=== PATIENT | female | born 1985 ===

== ENCOUNTER 2021-04-06 15:33 | Outpatient (REF) | payer OTHER, SELFPAY ==
[2021-04-06 16:13] LABS: Hematocrit 37.1 % (37.0-47.0); Hemoglobin 12.4 g/dl (12.0-16.0); Mean Corpuscular HGB Conc 33.4 g/dl (31.0-35.0); Mean Corpuscular Hemoglobin 30.1 pg (27.0-33.0); Mean Platelet Volume 10.3 fL (9.4-12.3); Platelet Count 278 X10*3/uL (160-400); Red Blood Count 4.12 X10*6/uL (4.20-5.50); Red Cell Distribution Width 13.8 % (11.0-16.0); White Blood Count 8.2 X10*3/uL (4.8-10.8)
[2021-04-06 16:36] LABS: Alanine Aminotransferase 11 U/L (0-31); Albumin Level 4.4 g/dL (3.5-5.0); Alkaline Phosphatase 57 U/L (39-117); Anion Gap 11 (12-20); Aspartate Amino Transferase 14 U/L (5-31); Bilirubin Direct 0.2 mg/dL (0.0-0.5); Bilirubin Total 0.4 mg/dL (0.0-1.0); Blood Urea Nitrogen 8 mg/dL (9-16); Calcium 9.9 mg/dL (8.4-10.2); Carbon Dioxide 27 mmol/L (22-29); Chloride 105 mmol/L (96-108); Estimated Glomerular Filt Rate > 60; Glucose Random 80 mg/dL (60-115); Potassium 4.2 mmol/L (3.3-5.1); Rheumatoid Factor < 15.0 IU/mL (<15.0); Sodium 139 mmol/L (135-145); Total Protein 7.4 g/dL (6.5-8.0)
[2021-04-06 16:51] LABS: Erythrocyte Sedimentation Rate 17 MM/HR (0-20)
[2021-04-07 05:02] LABS: Lyme Abs Screen <0.90 index
[2021-04-07 08:37] LABS: HIV AB/AG Nonreactive (Nonreactive); HIV Num 1 0.08 S/CO (0.00-0.99)
[2021-04-07 08:41] LABS: Syphilis Screen Nonreactive (Nonreactive)
[2021-04-09 13:05] LABS: Anti Nuclear Antibody Screen NEGATIVE (NEGATIVE)
[2021-04-11 10:06] LABS: HLA B27 Positive (Negative)
== END 2021-04-06 15:34 | disposition home or self-care (01) ==
LOC: HO.LAB 15:33
PROVIDERS: PCP Internal Medicine; Visit Provider Psychiatry & Neurology Neurology
DX: Z01.84 Encounter for antibody response examination (principal); Z11.4 Encounter for screening for human immunodeficiency virus [HIV]; M54.9 Dorsalgia, unspecified
CPT/HCPCS: 36415; 80048; 80076; 85027; 85652; 86038; 86039; 86431; 86617; 86618; 86780; 86812; 87389

== ENCOUNTER → 2021-05-19 08:01 | Outpatient (BNVA) | payer OTHER, SELFPAY | PROVIDERS: PCP Internal Medicine; Visit Provider Nurse Practitioner Family | DX: M53.3 Sacrococcygeal disorders, not elsewhere classified (principal); M51.34 Other intervertebral disc degeneration, thoracic region | CPT/HCPCS: 99202 ==

== ENCOUNTER → 2022-08-29 13:09 | Outpatient (BNVA) | payer OTHER, SELFPAY | PROVIDERS: PCP Internal Medicine; Visit Provider Neurological Surgery | DX: Z98.1 Arthrodesis status (principal) | CPT/HCPCS: 99212 ==

== ENCOUNTER 2022-12-03 09:10 | Outpatient (AMB) | payer OTHER, SELFPAY ==
--- NOTE | 2022-12-03 09:11 | MHC.OFFVIS ---
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 She was last seen by Tish OMER in May 2021 with recommendations to undergo SIJ injections. Patient reports she was under the care of Dr. Mckeon and underwent post minimally invasive lumbar fusion at L4-L5 last year and had follow up in on 08/29/22 with repeat of lumbar spine MRI for which she is scheduled to review with [facility] this upcoming Saturday. MRI findings are concerned for early discitis and osteomyelitis. Patient presents with localized midline spine tenderness in her lower back with back pain radiating into her left buttock and bilateral lower extremities. She is tearful, constantly changing positions from standing to sitting but fully cooperates with exam which elicits her left sided back with any movement. She has significant tenderness in the projection of bilateral sacroiliac joints with minimal provocative tests. Patient ambulates without assistive devices but with antalgic gait. Reports occasional episodes of bowel and urine incontinence with severe back pain but no saddle anesthesia. Reports chronic left lower weakness with walking. Denies any recent trauma, injury or falls. Denies any fever, weight loss, night sweats, shortness of breaths, chest pain, dizziness, abdominal or groin pain. PRIOR Tish OMER 05/19/21: Vero is a 36 year female who presents to the office with complaints of low back pain. She reports having this pain since 2019 and attributes it to a traumatic fall while incarcerated. She reports being hospitalized for three weeks requiring extensive physical therapy and VNA services. She is now ambulting unassisted but with antalgic gait to shift weight off of the left side. She also reports a shooting pain down the left leg posteriorly especially when left side laying. She reports cramping throughout upper gluteal muscles and numbness throughout her toes. She also describes a stabbing pain across the low back. She reports having an EMG which was normal but the results at not available. She has been under the care of the arthritis center where imaging was performed and has been uploaded in her chart. She has been given prednisone in the past and states her pain significantly worsened. She is using meloxicam and heat with minimal effect. She has tried diclofenac, lidocaine patches and gabapentin with no relief. Her pain is exacerbated with sitting and prolonged standing. She states the pain onset as sudden, constant and rates the pain as 10/10. She does have relief when she is in a flexed position over her couch with her legs suspended in the air. She denies any back injections since this incident and denies any back surgery. She has an upcoming appointment with Dr. Mckeon, neurosurgery, on 06/13/21 for an evaluation. [facility] with normal SIJ imaging as well as WNL inflammatory makers. Of note, she recently attempted suicide and is under the care of psychiatry. Review of Systems Const All systems reviewed & are unremarkable except as noted in HPI and below Physical Exam Vital Signs: Last Vital Signs Pulse 58 12/03/22 09:15 BP 158/85 H 12/03/22 09:15 Pulse Ox 97 12/03/22 09:15 Oxygen Delivery Method Room Air 12/03/22 09:15 BMI result Body Mass Index 26.7 General: Appears afebrile. Alert and oriented. Mood and affect appropriate. Tearful. Follows and participates in conversation appropriately. Respiratory effort is unlabored. No cough. Able to transition from sit to stand unassisted. Pacing, constantly changes positioning due to pain. Back/Spine/Pelvis Other: Antalgic gait with limping. Limited lumbar ROM with flexion reproducing worse pain than extension. Demonstrates 5/5 strength of quadriceps bilaterally as well as flexion/dorsiflexion of bilateral feet against resistance. 2+ pedal pulses bilaterally. Seated straight leg rise with dorsiflexion negative bilaterally. +2 patellar and achilles reflexes bilaterally. Facet loading test positive bilaterally. Marcel sign, Alexei?s, Gaenslen, Pelvic compression and Stinchfield tests are positive bilaterall, worse on the left. No groin pain with I/E hip rotations. Valsalva maneuver negative. Significant midline and paraspinal tenderness lower spine bilaterally. Results Reviewed Results Reviewed: Assessment & Plan Assessment & Plan (1) Discitis of lumbar region: Code(s): M46.46 - Discitis, unspecified, lumbar region (2) Osteomyelitis of lumbar spine: Code(s): M46.26 - Osteomyelitis of vertebra, lumbar region (3) DDD (degenerative disc disease), thoracic: Code(s): M51.34 - Other intervertebral disc degeneration, thoracic region (4) Sacroiliac joint pain: Code(s): M53.3 - Sacrococcygeal disorders, not elsewhere classified (5) History of lumbosacral spine surgery: Code(s): Z98.890 - Other specified postprocedural states Plan 1. Lumbar spine MRI results reviewed with patient. Noted for early discitis/osteomyelitis. Labs and ID referral ordered for further evaluation. Patient is aware to seek medical evaluation in ER if any worsening of symptoms, including fever, increased back pain with neurologic deficits. 2. Follow up with Neurosurgery as scheduled on Saturday. 3. Briefly discussed SCS trial and SIJ injections if cleared by ID and Neurosurgery for discitis/osteomyelitis. Informational booklets provided. All questions and concerns have been answered and patient agreed with the plan. Follow up as needed. Orders: Orders Blood Culture X1 Today M46.46 - Discitis, unspecified, lumbar region Blood Culture X2 Today M46.46 - Discitis, unspecified, lumbar region CRP High Sensitivity Today M46.46 - Discitis, unspecified, lumbar region Complete Blood Count Auto Diff Today M46.46 - Discitis, unspecified, lumbar region Erythrocyte Sedimentation Rate Today M46.46 - Discitis, unspecified, lumbar region Referrals Infectious Disease Referral M46.26 - Osteomyelitis of vertebra, lumbar region, M46.46 - Discitis, unspecified, lumbar region Coding Level of Care Code Est Pt Level 4 (79041) Diagnoses Discitis of lumbar region M46.46 Osteomyelitis of lumbar spine M46.26 DDD (degenerative disc disease), thoracic M51.34 Sacroiliac joint pain M53.3 History of lumbosacral spine surgery Z98.890
[2022-12-03 09:15] VITALS: BP 158/85; PULSE 58; O2SAT 97; BMI 26.7
== END 2022-12-03 09:35 | disposition home or self-care (01) ==
PROVIDERS: PCP Internal Medicine; Visit Provider Nurse Practitioner Family
DX: M46.46 Discitis, unspecified, lumbar region (principal); M46.26 Osteomyelitis of vertebra, lumbar region
CPT/HCPCS: 99214

== ENCOUNTER 2022-12-03 09:10 | Outpatient (REF) | payer OTHER, SELFPAY ==
[2022-12-03 10:15] LABS: MANUAL DIFF FLAG NO
[2022-12-03 10:41] LABS: Basophils Absolute Auto 0.1 X10*3/uL (0.0-0.2); Basophils Percent Auto 0.9 % (0-2); Eosinophils Absolute Auto 0.1 X10*3/uL (0.0-0.4); Eosinophils Percent Auto 0.9 % (0-4); Hemoglobin 11.5 g/dl (12.0-16.0); Imm Gran Abs Auto 0.01 X10*3/uL (0.00-0.03); Imm Gran Pct Auto 0.2 % (0.0-0.4); Lymphocytes Absolute Auto 1.6 X10*3/uL (1.2-4.9); Lymphocytes Percent Auto 28.9 % (20-40); Mean Corpuscular HGB Conc 32.9 g/dl (31.0-35.0); Mean Corpuscular Hemoglobin 29.9 pg (27.0-33.0); Mean Corpuscular Volume 90.9 fL (80.0-98.0); Mean Platelet Volume 10.8 fL (9.4-12.3); Monocytes Absolute Auto 0.4 X10*3/uL (0.1-1.2); Monocytes Percent Auto 6.4 % (2-11); Neutrophils Absolute Auto 3.5 x10*3/uL (2.0-8.3); Neutrophils Percent Auto 62.7 % (45-73); Platelet Count 245 X10*3/uL (160-400); Red Blood Count 3.85 X10*6/uL (4.20-5.50); Red Cell Distribution Width 15.8 % (11.0-16.0); White Blood Count 5.5 X10*3/uL (4.8-10.8)
[2022-12-03 11:26] LABS: Erythrocyte Sedimentation Rate 9 MM/HR (0-20)
[2022-12-05 15:38] LABS: CRP High Sensitivity 4.1 mg/L
== END 2022-12-03 09:11 | disposition home or self-care (01) ==
LOC: HO.LAB 09:10
PROVIDERS: PCP Internal Medicine; Visit Provider Nurse Practitioner Family
DX: M46.26 Osteomyelitis of vertebra, lumbar region (principal); M51.34 Other intervertebral disc degeneration, thoracic region; M53.3 Sacrococcygeal disorders, not elsewhere classified; Z98.890 Other specified postprocedural states
CPT/HCPCS: 36415; 85025; 85652; 86141; 87040; 99212

== ENCOUNTER 2022-12-17 14:48 | Outpatient (AMB) | payer OTHER, SELFPAY ==
--- NOTE | 2022-12-17 14:42 | MHC.OFFVIS ---
Intake Vital Signs 12/17/22 14:56 Height 5 ft 6 in Weight 166 lb BMI 26.8 BP 114/80 Blood Pressure Location Lt brachial Position Sitting Pulse 77 Pulse Source Pulse Oximeter Pulse Oximetry (%) 98 Intake Visit Reasons: ref.[facility],Osteomyelitis Allergies lorazepam [From Ativan] Adverse Reaction (Severe, Verified 12/17/22 14:57) low heart rate HPI ref.[facility],Osteomyelitis HPI Details She is here for evaluation possible LS spine osteomyelitis from Pain Clinic. She has very severe lumbar pain,even prompting a suicide attempt in the past. I reviewed [facility] notes. SHe has DJD,anxiety and depression. MRI shows slight enhancement L4-L5 with early OM in differential. CBC has been unremarkable and ESR is only 9. She has no fever or chills. [facility] Medical History (Updated 12/18/22 @ 15:40 by Mallorie Diallo MD) Depression Anxiety Review of Systems Const All systems reviewed & are unremarkable except as noted in HPI and below Neuro Details: lower back pain no erythema Physical Exam Vital Signs: Last Vital Signs Pulse 77 12/17/22 14:56 BP 114/80 12/17/22 14:56 Pulse Ox 98 12/17/22 14:56 BMI result Body Mass Index 26.8 Assessment & Plan Assessment & Plan (1) Status post lumbar and lumbosacral fusion by anterior technique: Comment: She has only small amount enhancement and no definite erosion to prove OM. She has no signs of sepsis and normal ESR. Code(s): Z98.1 - Arthrodesis status Plan: No antibiotics based on these results. Would recheck MRI in three months or if clinical condition warrants/worsens and then obtain biopsy/culture area if worsens and refer back (2) DDD (degenerative disc disease), thoracic: Code(s): M51.34 - Other intervertebral disc degeneration, thoracic region (3) Sacroiliac joint pain: Code(s): M53.3 - Sacrococcygeal disorders, not elsewhere classified Coding Level of Care Code New Pt Level 3 (65922) Diagnoses Status post lumbar and lumbosacral fusion by anterior technique Z98.1 DDD (degenerative disc disease), thoracic M51.34 Sacroiliac joint pain M53.3
[2022-12-17 14:56] VITALS: BP 114/80; PULSE 77; O2SAT 98; BMI 26.8
== END 2022-12-17 15:54 | disposition home or self-care (01) ==
LOC: HO.HID 14:49
PROVIDERS: PCP Internal Medicine; Visit Provider Internal Medicine
DX: Z98.1 Arthrodesis status (principal); M51.34 Other intervertebral disc degeneration, thoracic region; M53.3 Sacrococcygeal disorders, not elsewhere classified
CPT/HCPCS: 99203

== ENCOUNTER → 2022-12-17 14:48 | Outpatient (BNVA) | payer OTHER, SELFPAY | PROVIDERS: PCP Internal Medicine; Visit Provider Internal Medicine | DX: M51.34 Other intervertebral disc degeneration, thoracic region (principal); M53.3 Sacrococcygeal disorders, not elsewhere classified; Z98.1 Arthrodesis status | CPT/HCPCS: 99202 ==

== ENCOUNTER 2023-02-14 13:09 | Outpatient (REF) | payer OTHER, SELFPAY ==
--- NOTE | ~2023-02-14 | MR_ITS ---
EXAMINATION: MR LUMBAR SPINE WITHOUT CONTRAST CLINICAL INFORMATION: Arthrodesis status COMPARISON: Outside MRI lumbar spine on 11/06/2022. TECHNIQUE: MRI of the lumbar spine was obtained using routine sequences without contrast. FINDINGS: Motion artifact is present. Slight straightening of the normal lumbar lordosis. No listhesis. Sequelae of prior posterior spinal fusion and interbody spacer at L4-5 with associated susceptibility artifact slightly limiting evaluation. Otherwise, no abnormal bone marrow signal. The vertebral body heights are preserved. Disc desiccation without disc height loss at L2-3. The visualized spinal cord is normal in caliber. No abnormal cord signal. The conus medullaris terminates at L1. T12-L1: No significant spinal canal or neural foraminal narrowing. L1-2: Right foraminal disc protrusion with superimposed annular fissure. No significant spinal canal or neural foraminal narrowing. L2-3: Tiny disc bulge with superimposed annular fissure. No significant spinal canal or neural foraminal narrowing. L3-4: No significant spinal canal or neural foraminal narrowing. L4-5: Decompressed spinal canal. L5-S1: Tiny disc bulge. No significant spinal canal or neural foraminal narrowing. The paravertebral soft tissues are unremarkable. MR/MR lumbar spine wo con IMPRESSION: Within the limitations of this study, -Sequelae of prior L4-L5 posterior spinal fusion with decompression of the spinal canal at the instrumented levels. -Small right foraminal disc protrusion at L1-L2 with superimposed annular fissure. Additional tiny disc bulge at L2-L3 with superimposed annular fissure. No significant spinal canal or neural foraminal narrowing.
== END 2023-02-14 13:10 | disposition home or self-care (01) ==
LOC: HO.MRI 13:09
PROVIDERS: PCP Internal Medicine; Visit Provider Physician Assistant
DX: Z98.1 Arthrodesis status (principal)
CPT/HCPCS: 72148

== ENCOUNTER 2023-04-10 13:13 | Outpatient (AMB) | payer OTHER, SELFPAY ==
--- NOTE | 2023-04-10 13:25 | HO.SPINEOV ---
Intake Intake Visit Reasons: discuss letter Intake Note: Ms. Cash is here today to discuss a letter she is requesting. Tactical Air Control Party Required: No Allergies lorazepam [From Ativan] Adverse Reaction (Severe, Verified 12/17/22 14:57) low heart rate Assessment & Plan Assessment & Plan (1) Status post lumbar and lumbosacral fusion by anterior technique: Comment: She has only small amount enhancement and no definite erosion to prove OM. She has no signs of sepsis and normal ESR. Code(s): Z98.1 - Arthrodesis status Plan Dear colleague, On 04/10/2023, I saw follow-up Vero Cash. She was referred back in November to Pain Management for ongoing back pain despite a lumbar fusion to see if she is a candidate for an SI joint injections or a spinal cord stimulator. Pain management decided to referred to Infectious Disease after reading the MRI report raising the possibility of an osteomyelitis. This patient does not have an osteomyelitis and never had an osteomyelitis, otherwise I would not have referred her to pain management. I will refer her again to Pain Management with the question to see if she is a candidate for either a spinal cord stimulator or SI joint injections. I spent 20 minutes in his consult to discuss the plan. Joseph Mckeon MD, PhD [facility] Trained Neurosurgeon Director, [facility] Coding Level of Care Code Est Pt Level 2 (86523) Diagnoses Status post lumbar and lumbosacral fusion by anterior technique Z98.1
== END 2023-04-10 14:23 | disposition home or self-care (01) ==
PROVIDERS: PCP Internal Medicine; Visit Provider Neurological Surgery
DX: Z98.1 Arthrodesis status (principal)
CPT/HCPCS: 99212

== ENCOUNTER → 2023-04-10 13:13 | Outpatient (BNVA) | payer OTHER, SELFPAY | PROVIDERS: PCP Internal Medicine; Visit Provider Neurological Surgery | DX: Z98.1 Arthrodesis status (principal) | CPT/HCPCS: 99212 ==

== ENCOUNTER 2023-11-07 20:27 | Emergency (ER) | payer OTHER, SELFPAY ==
--- NOTE | ~2023-11-07 | CT_ITS ---
EXAMINATION: CT LUMBAR SPINE WITHOUT CONTRAST CLINICAL INFORMATION: History of fusion, felt a pop sensation COMPARISON: Images from MRI lumbar spine performed 02/14/2023 are not available to view in PACS at time of dictation due to a technical issue TECHNIQUE: A multidetector CT acquisition of the lumbar spine is obtained without contrast. This CT examination was performed using dose optimization techniques as appropriate, variously including the following: *Automated exposure control *Adjustment of mA and/or kV according to patient size (this includes techniques or standardized protocols for targeted exams where dose is matched to indication/reason for exam; i.e. extremities or head) *Use of iterative reconstruction technique DLP: 378.13 mGy-cm FINDINGS: Postsurgical changes following L4-L5 instrumented posterior interbody fusion. There is solid interbody arthrodesis at L4-L5 but without posterolateral bone fusion mass at this level. No lucency about the hardware to suggest aseptic loosening. Normal lumbar lordosis is preserved. No significant spondylolisthesis. Vertebral body heights are maintained. No acute fracture. No traumatic malalignment. There is mild L5-S1 disc height loss. Please note canal patency is not well assessed on this examination due to inherent limitations of CT without intrathecal contrast. Additionally, there is nondiagnostic assessment of the spinal canal at L4-L5. No bony spinal canal stenosis at any level. Osteophytic ridging at L4-L5 projecting into the neural foramina contributes to apparent moderate right and mild left neural foraminal narrowing with impingement upon the exiting L4 nerve roots. No significant abnormalities of the paraspinal soft tissues. Colonic diverticulosis. The abdominal aorta is of normal contour and caliber. Mild degenerative changes of the sacroiliac joints with subchondral cystic change and vacuum phenomenon. CT/CT lumbar spine wo IV con IMPRESSION: Images from MRI lumbar spine performed 02/14/2023 are not available to view in PACS at time of dictation due to a technical issue. L4-L5 posterior interbody fusion hardware without hardware complication. Osteophytic ridging at L4-L5 projecting into the neural foramina contributes to apparent moderate right and mild left neural foraminal narrowing with impingement upon the exiting L4 nerve roots. No significant bony spinal canal stenosis. No acute osseous injury.
[2023-11-07 20:29] VITALS: BP 114/79; PULSE 71; RESP 20; TEMP 36.3; O2SAT 98; BMI 25.5
--- NOTE | 2023-11-07 20:36 | ED_ITS ---
HPI - Back Pain/Injury General Chief Complaint: Back Pain/Injury Stated Complaint: back fusions/towel fell bent to chart picker back eagle Time Seen by Provider: 11/07/23 20:58 Source: patient Mode of arrival: ambulatory Limitations: no limitations History of Present Illness ED Provider: SCOTT COLON Narrative: 38 yo female with PMH of depression, anxiety, DDD, s/p minimally invasive lumbar fusion at L4-L5 in 2021 she notes today she went to bend down to get her towel in the bathroom and twisted and felt excruciating pain in her lower back that made her pass out. No head trauma woke up and was propped up in the bathroom. She tried motrin, tylenol and ice packs and a drink of alcohol but no relief. She denies b/b incontinence or saddle anesthesia. This happened this AM. She can no longer take the pain. She is worried something happened to her fusion. She states she can barely walk and if she sneezes or coughs she has severe pain. MD elicited complaint: back pain and back injury Pertinent past history: prior back pain and recent trauma Onset (ago): day(s) (several) Timing: constant Severity: severe Quality: sharp and spasming Location: lumbar spine Radiation: abdomen Exacerbating factors: movement and coughing/sneezing Relieving factors: none Context: while lifting and turning/twisting Associated symptoms: denies other symptoms Treatments prior to arrival: cold therapy, NSAIDS and acetaminophen Work related injury: No Related Data Home Medications ?Medication ?Instructions ?Recorded ?Confirmed multivitamin (Daily Multi-Vitamin 1 tab PO DAILY 05/19/21 05/19/21 tablet) clindamycin phosphate 1 % topical topical BID PRN 12/03/22 gel clonidine HCl 0.2 mg tablet 0.2 mg PO BEDTIME 12/03/22 fluoxetine 40 mg capsule 40 mg PO DAILY 12/03/22 oxcarbazepine 150 mg tablet 150 mg PO BID 12/03/22 valacyclovir 500 mg tablet 500 mg PO DAILY 12/03/22 Previous Rx's ?Medication ?Instructions ?Recorded cyclobenzaprine 10 mg tablet 10 mg PO TID PRN muscle spasm #20 11/08/23 tabs lidocaine 5 % topical patch 1 patch topical DAILY #30 ea 11/08/23 morphine 15 mg immediate release 15 mg PO Q6H PRN pain #14 tabs 11/08/23 tablet Allergies Allergy/AdvReac Type Severity Reaction Status Date / Time lorazepam [From Ativan] AdvReac Severe low heart Verified 11/07/23 20:34 rate Review of Systems 2 Review of Systems: Constitutional : No Weight loss, No Fever, No Chills, ENT/Mouth : No Hearing loss, No Ear Pain, No Nasal Congestion, No Sinus Pain, No Hoarseness, No sore throat, No Rhinorrhea, No Swallowing Difficulty Cardiovascular : No Chest Pain, No SOB Respiratory : No Cough, No Dyspnea Gastrointestinal : No Nausea, No Vomiting, No Diarrhea, No abdominal Pain, No Hematochezia, No Melena Genitourinary : No Dysuria, No Urinary Frequency, No Hematuria, No Urinary Incontinence, Musculoskeletal : positive back pain Skin : No Skin Lesions, No rash Neuro : No Weakness, No Numbness, No Paresthesias, no loss of bowel or bladder incontinence, no saddle anesthesia All other systems reviewed and are negative. [facility] Past Medical History Attestation statement: The following information was validated with the patient. Source: old records reviewed Medical History (Updated 11/08/23 @ 01:21 by Ceci Duncan DO) DDD (degenerative disc disease), thoracic Depression Anxiety Surgical History History of lumbosacral spine surgery Social History Social History Alcohol intake: current Alcohol intake frequency: 3 or more drinks per day Smoked in Last 30 Days: No Use of substances other than those prescribed or required for medical reasons: No Advance Directives: No Advance Directives Information Provided: No Do you have a plan to hurt others: No Plan Physical Exam 2 Vital Signs: Vital Signs: Last Vital Signs Temp 97.8 F 11/08/23 00:00 Pulse 63 11/08/23 00:00 Resp 18 11/08/23 00:00 BP 147/76 H 11/08/23 00:00 Pulse Ox 97 11/08/23 00:00 O2 Del Method Room Air 11/08/23 00:00 BMI result Body Mass Index 25.5 Appearance: Alert. Oriented X3. No acute distress. Eyes: Pupils equal, round and reactive to light. ENT: Pharynx normal. Neck: Normal inspection. Neck supple. CVS: Normal heart rate and rhythm. Pulses normal. Respiratory: No respiratory distress. Breath sounds normal. Abdomen: Soft and non-tender. Skin: Skin warm and dry. Normal skin color. Extremities: No lower extremity edema. SILT inner thigh 2+ DP pulses bilaterally 2+ DTR in achilles and patella Neuro: Oriented X 3. No motor deficit. No sensory deficit. Course Course Course Narrative: This is a Rapid Medical Examination (RME) performed by Bennie Keller PA-C in triage. Full HPI, ROS, assessment and treatment plan per primary provider in the Main ED. 38 yo female hx of DDD, discitis, s/p lumbosacral fusion in 07/[address] Mckeon here for eval of acute lumbar back pain s/p bending over to chart picker her towel off the floor this morning. Reports feeling a pop in her back prior to onset of severe midline lumbar pain. Has been taking ibuprofen throughout the day and icing the back but the pain has worsened. States she is unable to move her back or ambulate without pain. Scared to breathe due to the pain. Denies bowel or bladder incontinence or retention, saddle anesthesia. Pain does not radiate into her lower extremities. + sensation intact to light touch. Unable to assess gait. Patient transition to wheelchair from vehicle. Tearful on exam. Hesitant to move her body. There is midline lumbar spinous tenderness over fusion site with noted ecchymoses. Exam somewhat limited in triage as patient is in wheelchair. Plan: MRI not currently on at this time. Labs and CT lumbar spine ordered. Medications Administered Discontinued Medications Generic Name Dose Route Start Last Admin Trade Name Anjali PRN Reason Stop Dose Admin Cyclobenzaprine HCl 10 mg 11/07/23 21:23 11/07/23 21:41 Cyclobenzaprine Hcl 10 Mg Tablet PO 11/07/23 21:24 10 mg ONCE ONE Administration Hydromorphone HCl 1 mg 11/07/23 21:23 11/07/23 21:41 Hydromorphone Hcl 1 Mg/Ml Syringe IVPUSH 11/07/23 21:24 1 mg ONCE ONE Administration Protocol Hydromorphone HCl 0.5 mg 11/07/23 23:52 11/07/23 23:57 Hydromorphone Hcl 0.5 Mg/0.5 Ml Syringe IVPUSH 11/07/23 23:53 0.5 mg ONCE ONE Administration Protocol Morphine Sulfate 15 mg 11/07/23 23:52 11/07/23 23:57 Morphine Sulfate Immed Release 15 Mg Tablet PO 11/07/23 23:53 15 mg ONCE ONE Administration Medical Decision Making Medical Decision Making [facility] Narrative: 38 yo female with PMH of depression, anxiety, DDD, s/p minimally invasive lumbar fusion at L4-L5 in 2021 here with c/o twisting and bending pain severe in lower back no b/b incontinence no saddle anesthesia she is NV intact no cauda equina symptoms. At this time will need CT scan to asses for any signs of hardware fusion and start on pain medications. PO flexeril ordered as well. 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 Differential Diagnosis Differential Diagnoses: The differential diagnosis associated with the presentation includes back strain, spasm, disc herniation Admission/Observation Consideration of admission/observation: Escalation of care including admission/observation considered offered admission for intractable pain but she declines wants to try to go home partner at bedside aware RN notes she did walk to bathroom with assist and able to go on her own Lab Data [facility] Lab Attestation statement: I reviewed the patient's lab results. 11/07/23 20:54 11/07/23 20:54 Labs: Lab Results 11/07/23 Range/Units 20:54 WBC 5.6 (4.8-10.8) X10*3/uL RBC 3.85 L (4.20-5.50) X10*6/uL Hgb 11.8 L (12.0-16.0) g/dl Hct 35.0 L (37.0-47.0) % MCV 90.9 (80.0-98.0) fL MCH 30.6 (27.0-33.0) pg MCHC 33.7 (31.0-35.0) g/dl RDW 14.2 (11.0-16.0) % Plt Count 290 (160-400) X10*3/uL MPV 10.0 (9.4-12.3) fL Immature Gran % (Auto) 0.2 (0.0-0.4) % Neut % (Auto) 45.8 (45-73) % Lymph % (Auto) 41.5 H (20-40) % Mineral % (Auto) 10.3 (2-11) % Eos % (Auto) 1.3 (0-4) % Baso % (Auto) 0.9 (0-2) % Lymph # (Auto) 2.3 (1.2-4.9) X10*3/uL Mineral # (Auto) 0.6 (0.1-1.2) X10*3/uL Eos # (Auto) 0.1 (0.0-0.4) X10*3/uL Baso # (Auto) 0.1 (0.0-0.2) X10*3/uL Abs Immat Gran (auto) 0.01 (0.00-0.03) X10*3/uL Absolute Neuts (auto) 2.6 (2.0-8.3) x10*3/uL Absolute Nucleated RBC 0.000 (0.0-0.012) X10*3/uL Nucleated RBC % (auto) 0.0 (0.0-0.2) /100WBC PT 10.5 L (11.1-13.3) SEC INR 0.9 (0.9-1.1) APTT 28.9 (26.0-36.8) SEC Sodium 142 (135-145) mmol/L Potassium 3.8 (3.3-5.1) mmol/L Chloride 108 (96-108) mmol/L Carbon Dioxide 26 (22-29) mmol/L Anion Gap 12 (12-20) BUN 11 (9-16) mg/dL Creatinine 0.72 (0.5-1.4) mg/dL Estim Creat Clear Calc 109.1 Estimated GFR > 60 Random Glucose 81 (60-115) mg/dL Calcium 9.5 (8.4-10.2) mg/dL Magnesium 1.7 (1.6-2.6) mg/dL Total Bilirubin 0.2 (0.0-1.0) mg/dL AST 18 (5-31) U/L ALT 10 (0-31) U/L Alkaline Phosphatase 52 (39-117) U/L Total Protein 7.1 (6.5-8.0) g/dL Albumin 4.0 (3.5-5.0) g/dL Beta HCG, Quant < 2 mIU/mL Independent Interpretation I performed an independent interpretation of an: CT Scan (no hardware failure) Radiology Impression Discussion of test interpretation with radiology: I have reviewed the radiologist's reading. External Record Review External record reviewed: Office record and Outpatient record Prescription Management I considered prescription management with: Pain Medication Critical Care Time Critical Care Time Critical Care Time: Yes Total Critical Care Time: 40 Attestation: IV dilaudid with improvement in pain, repeat IV dilaudid, review of records I attest to this time spent taking care of the patient Discharge Plan Discharge Clinical Impression: Acute lumbar back pain Qualifiers: Back pain laterality: bilateral Sciatica presence: without sciatica Qualified Code(s): M54.50 - Low back pain, unspecified Patient Disposition: Home, Self-Care Instructions: Acute Low Back Pain (ED) Additional Instructions: call Dr. Mckeon in AM. return for numbness, weakness, loss of control of bowel or bladder continue to rotate ice heat and tylenol / motrin for pain you were offered admission but declined. you can return at any time no hardware failure on CT scan L4-L5 posterior interbody fusion hardware without hardware complication. Osteophytic ridging at L4-L5 projecting into the neural foramina contributes to apparent moderate right and mild left neural foraminal narrowing with impingement upon the exiting L4 nerve roots. No significant bony spinal canal stenosis. No acute osseous injury. Prescriptions: New cyclobenzaprine 10 mg tablet 10 mg PO TID PRN (Reason: muscle spasm) Qty: 20 0RF lidocaine 5 % adhesive patch,medicated 1 patch topical DAILY Qty: 30 0RF Rx Instructions: leave on most painful area for up to 12 hrs morphine 15 mg tablet 15 mg PO Q6H PRN (Reason: pain) Qty: 14 0RF Rx Instructions: partial fill okay; Partial Fill upon patient request. No Action multivitamin [Daily Multi-Vitamin] Tablet 1 tab PO DAILY clindamycin phosphate 1 % gel topical BID PRN valacyclovir 500 mg tablet 500 mg PO DAILY fluoxetine 40 mg capsule 40 mg PO DAILY clonidine HCl 0.2 mg tablet 0.2 mg PO BEDTIME oxcarbazepine 150 mg tablet 150 mg PO BID Print Language: Italian
[2023-11-07 20:58] LABS: MANUAL DIFF FLAG NO
[2023-11-07 21:00] LABS: Basophils Absolute Auto 0.1 X10*3/uL (0.0-0.2); Basophils Percent Auto 0.9 % (0-2); Eosinophils Absolute Auto 0.1 X10*3/uL (0.0-0.4); Eosinophils Percent Auto 1.3 % (0-4); Hemoglobin 11.8 g/dl (12.0-16.0); Imm Gran Abs Auto 0.01 X10*3/uL (0.00-0.03); Imm Gran Pct Auto 0.2 % (0.0-0.4); Lymphocytes Absolute Auto 2.3 X10*3/uL (1.2-4.9); Lymphocytes Percent Auto 41.5 % (20-40); Mean Corpuscular HGB Conc 33.7 g/dl (31.0-35.0); Mean Corpuscular Hemoglobin 30.6 pg (27.0-33.0); Mean Corpuscular Volume 90.9 fL (80.0-98.0); Monocytes Absolute Auto 0.6 X10*3/uL (0.1-1.2); Monocytes Percent Auto 10.3 % (2-11); Neutrophils Absolute Auto 2.6 x10*3/uL (2.0-8.3); Neutrophils Percent Auto 45.8 % (45-73); Platelet Count 290 X10*3/uL (160-400); Red Blood Count 3.85 X10*6/uL (4.20-5.50); Red Cell Distribution Width 14.2 % (11.0-16.0); White Blood Count 5.6 X10*3/uL (4.8-10.8)
[2023-11-07 21:06] LABS: INTERNATIONAL NORM RATIO 0.9 (0.9-1.1); Prothrombin Time 10.5 SEC (11.1-13.3)
[2023-11-07 21:08] LABS: Partial Thromboplastin Time 28.9 SEC (26.0-36.8)
[2023-11-07 21:12] LABS: Alanine Aminotransferase 10 U/L (0-31); Alkaline Phosphatase 52 U/L (39-117); Anion Gap 12 (12-20); Aspartate Amino Transferase 18 U/L (5-31); Bilirubin Total 0.2 mg/dL (0.0-1.0); Blood Urea Nitrogen 11 mg/dL (9-16); Calcium 9.5 mg/dL (8.4-10.2); Carbon Dioxide 26 mmol/L (22-29); Chloride 108 mmol/L (96-108); Creatinine Clr Calc Pharmacy 109.1; Estimated Glomerular Filt Rate > 60; Glucose Random 81 mg/dL (60-115); Magnesium 1.7 mg/dL (1.6-2.6); Potassium 3.8 mmol/L (3.3-5.1); Sodium 142 mmol/L (135-145); Total Protein 7.1 g/dL (6.5-8.0)
[2023-11-07 21:20] LABS: HCG Quantitative < 2 mIU/mL
[2023-11-07] MEDS: Cyclobenzaprine HCl 10 MG TABLET PO (21:41)
[2023-11-07] MEDS: HYDROmorphone HCl 1 MG/ML SYRINGE IVPUSH (21:41)
[2023-11-07 22:00] VITALS: BP 157/88; PULSE 58; RESP 17; TEMP 36.8; O2SAT 99
[2023-11-07] MEDS: HYDROmorphone HCl 0.5 MG/0.5 ML SYRINGE IVPUSH (23:57)
[2023-11-07] MEDS: Morphine Sulfate Immed Release 15 MG TABLET PO (23:57)
[2023-11-08] VITALS: BP 147/76; PULSE 63; RESP 18; TEMP 36.6; O2SAT 97
[2023-11-08 01:36] VITALS: BP 147/76; PULSE 63; RESP 18; TEMP 36.6; O2SAT 97
== END 2023-11-08 01:37 | disposition home or self-care (01) ==
PROVIDERS: Physician Assistant Medical; Emergency Provider Emergency Medicine; PCP Internal Medicine
DX: M54.50 Low back pain, unspecified (principal)
CPT/HCPCS: 36415; 72131; 80053; 83735; 84702; 85025; 85610; 85730; 96374; 96376; 99284; 99285; J1170

== ENCOUNTER 2023-11-13 13:43 | Outpatient (AMB) | payer OTHER, SELFPAY ==
--- NOTE | 2023-11-13 14:10 | A.OFFVIS_ITS ---
Vital Signs 11/13/23 14:46 Height 5 ft 7 in Weight 169 lb 2 oz BMI 26.5 BP 132/78 Blood Pressure Location Rt radial Position Sitting Respiration 16 Pulse 64 Pulse Source Pulse Oximeter Pulse Oximetry (%) 100 Oxygen Delivery Method Room Air Intake Visit Reasons: Lower Back Pain/Discuss SCS Intake Note: Patient comes in to discuss SCS and low back pain. Reports pain /10. Allergies lorazepam [From Ativan] Adverse Reaction (Severe, Verified 11/13/23 14:48) low heart rate HPI Comments Details: Vero is back in my office with complains on intractable lower back pain which prevents her from doing activities of daily living, compromises her mobility, distress her mood and make her upset. She reports pain today 12/16. She is a patient of Dr. Mckeon who operated on Vero to alleviate severe spinal stenosis. She had weakness on bilateral lower extremities she had a continence with urine and stool. Her condition is better and her ambulation is improved she no longer suffers from incontinence. However she reports intractable pain in the lower back mostly on the left but also on the right with radiation of the pain down to the left and sometimes down to the right lower extremity, inability to sit for long period of time inability to stand for long period of time inability to bend forward, she reported today that she needs to crutch in the order to pick stuff from the floor. Physical exam is as below. My strong suspicion is that the patient is suffering from bilateral sacroiliitis. She was sent to this office by Dr. Mckeon to discuss spinal cord stimulation. She recently had CT of the lumbar spine while visiting emergency room. The results of the CT is dictated as below. [facility] Medical History (Updated 11/13/23 @ 14:44 by Joey Graves MD) DDD (degenerative disc disease), thoracic Depression Anxiety Surgical History History of lumbosacral spine surgery Social History Alcohol intake: current Alcohol intake frequency: 3 or more drinks per day Review of Systems Const All systems reviewed & are unremarkable except as noted in HPI and below ENT Reports Normal hearing present Neuro Reports Normal hearing present, Denies Abnormal speech present, Denies confusion and Denies Sensory deficit (Neuro) Psych Denies confusion Physical Exam Vital Signs: Last Vital Signs Pulse 64 11/13/23 14:46 Resp 16 11/13/23 14:46 BP 132/78 11/13/23 14:46 Pulse Ox 100 11/13/23 14:46 Oxygen Delivery Method Room Air 11/13/23 14:46 BMI result Body Mass Index 26.5 Const General: no acute distress; No confusion Orientation/consciousness: patient oriented x3 and No confusion Eyes General: appearance normal, both eyes and all related structures Pupils: Equal, round and reactive pupils present EOM: EOMs intact bilaterally Neck Neck: Yes full ROM Chest Chest palpation & inspection: normal inspection of the chest Resp Effort & Inspection: normal respiratory effort, able to speak in complete sentences, normal respiratory pattern, no audible wheezes and no cough Cardio Jugular venous distension: no JVD GI Inspection: Yes normal to inspection Back/Spine/Pelvis Other: Antalgic gait on the left. Tenderness on projection of the sacral bone, tenderness on palpation in the projection of the left sacroiliac joint. Left Alexei test is very positive for pain increase. Attempt to perform Ga[address]len te [address] on the left also results in severe pain. Alexei test equivocal on the right. Gaenslen test is equivocal on the left. Pelvic compression test is negative bilaterally I pelvic distraction test is positive on the left. Neuro General: patient oriented x3, gait normal and No confusion Cranial nerves: Yes CN's II-XII intact bilaterally, Yes Equal, round and reactive pupils present, Yes Normal hearing present and Yes Ability to bilaterally elevate shoulders present Speech: No Abnormal speech present Gait exam (Neuro): Normal gait present Motor exam (neuro): 5/5 motor strength present throughout Sensory Exam: No Sensory deficit (Neuro) Extrem General: No pedal edema Psych Speech and movement: Normal speech and movement present Affect: normal affect Attitude: cooperative Thought process: Normal thought process present Thought content: Normal thought content present Insight: Good insight present (Psych) Judgement: Good judgement present (Psych) Results Reviewed Results Reviewed: CT LUMBAR SPINE WITHOUT CONTRAST CLINICAL INFORMATION: History of fusion, felt a pop sensation COMPARISON: Images from MRI lumbar spine performed 02/14/2023 are not available to view in PACS at time of dictation due to a technical issue TECHNIQUE: A multidetector CT acquisition of the lumbar spine is obtained without contrast. This CT examination was performed using dose optimization techniques as appropriate, variously including the following: *Automated exposure control *Adjustment of mA and/or kV according to patient size (this includes techniques or standardized protocols for targeted exams where dose is matched to indication/reason for exam; i.e. extremities or head) *Use of iterative reconstruction technique DLP: 378.13 mGy-cm FINDINGS: Postsurgical changes following L4-L5 instrumented posterior interbody fusion. There is solid interbody arthrodesis at L4-L5 but without posterolateral bone fusion mass at this level. No lucency about the hardware to suggest aseptic loosening. Normal lumbar lordosis is preserved. No significant spondylolisthesis. Vertebral body heights are maintained. No acute fracture. No traumatic malalignment. There is mild L5-S1 disc height loss. Please note canal patency is not well assessed on this examination due to inherent limitations of CT without intrathecal contrast. Additionally, there is nondiagnostic assessment of the spinal canal at L4-L5. No bony spinal canal stenosis at any level. Osteophytic ridging at L4-L5 projecting into the neural foramina contributes to apparent moderate right and mild left neural foraminal narrowing with impingement upon the exiting L4 nerve roots. No significant abnormalities of the paraspinal soft tissues. Colonic diverticulosis. The abdominal aorta is of normal contour and caliber. Mild degenerative changes of the sacroiliac joints with subchondral cystic change and vacuum phenomenon. CT/CT lumbar spine wo IV con IMPRESSION: Images from MRI lumbar spine performed 02/14/2023 are not available to view in PACS at time of dictation due to a technical issue. L4-L5 posterior interbody fusion hardware without hardware complication. Osteophytic ridging at L4-L5 projecting into the neural foramina contributes to apparent moderate right and mild left neural foraminal narrowing with impingement upon the exiting L4 nerve roots. No significant bony spinal canal stenosis. No acute osseous injury. Assessment & Plan Assessment & Plan (1) Discitis of lumbar region: Code(s): M46.46 - Discitis, unspecified, lumbar region Category: Medical (2) Osteomyelitis of lumbar spine: Code(s): M46.26 - Osteomyelitis of vertebra, lumbar region Category: Medical (3) Sacroiliac joint pain: Code(s): M53.3 - Sacrococcygeal disorders, not elsewhere classified Category: Medical (4) Pain of both sacroiliac joints: Code(s): M53.3 - Sacrococcygeal disorders, not elsewhere classified Category: Medical (5) Sacroiliac joint dysfunction of both sides: Code(s): M53.3 - Sacrococcygeal disorders, not elsewhere classified Category: Medical (6) Sacroiliitis: Code(s): M46.1 - Sacroiliitis, not elsewhere classified Category: Medical Plan 1. Lumbar spine MRI results reviewed CT scan results are reviewed, there is no significant issues which could be indicative of the pain syndrome presented by pradip moreno patient. 2. SCS discussed. [employer] brochure was given to the patient. Patient was given telephone number of [employer] [facility] to get evaluation for spinal cord stimulation. 3. Strong suspicion for sacroiliac joint pathology. Bilateral sacroiliac joint injection diagnostic will be scheduled for the patient. I will see the patient after the injection. Patient Instructions: I here by testify that I spent 32 minutes in conversation with this patient evaluation patient's diagnostic studies prior to patient's record evaluating emergency room visit planning her care and organizing this note. Coding Level of Care Code Est Pt Level 4 (68407) Diagnoses Discitis of lumbar region M46.46 Osteomyelitis of lumbar spine M46.26 Sacroiliac joint pain M53.3 Pain of both sacroiliac joints M53.3 Sacroiliac joint dysfunction of both sides M53.3 Sacroiliitis M46.1
[2023-11-13 14:46] VITALS: BP 132/78; PULSE 64; RESP 16; O2SAT 100; BMI 26.5
== END 2023-11-13 14:37 | disposition home or self-care (01) ==
PROVIDERS: PCP Internal Medicine; Visit Provider Anesthesiology
DX: M46.26 Osteomyelitis of vertebra, lumbar region (principal); M53.3 Sacrococcygeal disorders, not elsewhere classified; M46.1 Sacroiliitis, not elsewhere classified
CPT/HCPCS: 99214

== ENCOUNTER → 2023-11-13 13:43 | Outpatient (BNVA) | payer OTHER, SELFPAY | PROVIDERS: PCP Internal Medicine; Visit Provider Anesthesiology | DX: M46.46 Discitis, unspecified, lumbar region (principal); M46.26 Osteomyelitis of vertebra, lumbar region; M53.3 Sacrococcygeal disorders, not elsewhere classified; M46.1 Sacroiliitis, not elsewhere classified | CPT/HCPCS: 99212 ==

== ENCOUNTER 2024-01-17 15:12 | Outpatient (AMB) | payer OTHER, SELFPAY ==
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
== END 2024-01-17 15:48 | disposition home or self-care (01) ==
PROVIDERS: PCP Internal Medicine; Visit Provider Physician Assistant
DX: M46.1 Sacroiliitis, not elsewhere classified (principal); M53.3 Sacrococcygeal disorders, not elsewhere classified
CPT/HCPCS: 99213

== ENCOUNTER → 2024-01-17 15:12 | Outpatient (BNVA) | payer OTHER, SELFPAY | PROVIDERS: PCP Internal Medicine; Visit Provider Physician Assistant | DX: M46.1 Sacroiliitis, not elsewhere classified (principal); M53.3 Sacrococcygeal disorders, not elsewhere classified | CPT/HCPCS: 99212 ==

== ENCOUNTER 2024-02-19 11:41 | Outpatient (AMB) | payer OTHER, SELFPAY ==
--- NOTE | 2024-02-19 11:42 | A.OFFVIS_ITS ---
Intake Visit Reasons: discuss B/L DX SIJ INJ/lisa from 02/09 Allergies lorazepam [From Ativan] Adverse Reaction (Severe, Verified 02/19/24 11:43) low heart rate HPI Comments Details: Vero is on the phone today to discuss possibility of treatment of her pos tlaminectomy syndrome. She came to my office referred by Dr. Mckeon postlaminectomy syndrome after surgical procedure directed to severe spinal stenosis. Dr. Mckeon recommended to treat the condition of this patient with spinal cord stimulator. The symptoms of stenosis got better however pain remained. I suspected that at least part of her pain syndrome was related to sacroiliitis. I offered patient diagnostic sacroiliac joint injection to rule out or confirm sacroiliitis however patient was hesitant to go for diagnostic sacroiliac joint injection. Today I explained to the patient that spinal cord stimulator unlikely will cover pain from sacroiliac joints and therefore I prefer to do sacroiliac joint diagnostic injection before doing a trial of spinal cord stimulator. Patient agreed with me to go for bilateral diagnostic sacroiliac joint injection. I will schedule this procedure without sedation. Prior: complains on intractable lower back pain which prevents her from doing activities of daily living, compromises her mobility, distress her mood and make her upset. She reports pain today 12/16. She is a patient of Dr. Mckeon who operated on Vero to alleviate severe spinal stenosis. She had weakness on bilateral lower extremities she had incontinence with urine and stool. Her condition is better and her ambulation is improved she no longer suffers from incontinence. However she reports intractable pain in the lower back mostly on the left but also on the right with radiation of the pain down to the left and sometimes down to the right lower extremity, inability to sit for long period of time inability to stand for long period of time inability to bend forward, she reported today that she needs to crutch in the order to pick stuff from the floor. Physical exam is as below. My strong suspicion is that the patient is suffering from bilateral sacroiliitis. She was sent to this office by Dr. Mckeon to discuss spinal cord stimulation. She recently had CT of the lumbar spine while visiting emergency room. The results of the CT is dictated as below. [facility] Medical History (Updated 11/13/23 @ 14:44 by Joey Graves MD) DDD (degenerative disc disease), thoracic Depression Anxiety Surgical History History of lumbosacral spine surgery Social History Alcohol intake: current Alcohol intake frequency: 3 or more drinks per day Review of Systems Const All systems reviewed & are unremarkable except as noted in HPI and below Telehealth Telehealth Telehealth Platform: Telephone Location of provider rendering services: practice address Location of patient: address on file Patient Identification confirmed using: Name, : Yes Telehealth method: voice only Patient verbally consented to treatment: Yes Patient verbally consented to billing insurance company: Yes Patient informed of any privacy concerns related to visit: Yes Results Reviewed Results Reviewed: CT LUMBAR SPINE WITHOUT CONTRAST CLINICAL INFORMATION: History of fusion, felt a pop sensation COMPARISON: Images from MRI lumbar spine performed 02/14/2023 are not available to view in PACS at time of dictation due to a technical issue TECHNIQUE: A multidetector CT acquisition of the lumbar spine is obtained without contrast. This CT examination was performed using dose optimization techniques as appropriate, variously including the following: *Automated exposure control *Adjustment of mA and/or kV according to patient size (this includes techniques or standardized protocols for targeted exams where dose is matched to indication/reason for exam; i.e. extremities or head) *Use of iterative reconstruction technique DLP: 378.13 mGy-cm FINDINGS: Postsurgical changes following L4-L5 instrumented posterior interbody fusion. There is solid interbody arthrodesis at L4-L5 but without posterolateral bone fusion mass at this level. No lucency about the hardware to suggest aseptic loosening. Normal lumbar lordosis is preserved. No significant spondylolisthesis. Vertebral body heights are maintained. No acute fracture. No traumatic malalignment. There is mild L5-S1 disc height loss. Please note canal patency is not well assessed on this examination due to inherent limitations of CT without intrathecal contrast. Additionally, there is nondiagnostic assessment of the spinal canal at L4-L5. No bony spinal canal stenosis at any level. Osteophytic ridging at L4-L5 projecting into the neural foramina contributes to apparent moderate right and mild left neural foraminal narrowing with impingement upon the exiting L4 nerve roots. No significant abnormalities of the paraspinal soft tissues. Colonic diverticulosis. The abdominal aorta is of normal contour and caliber. Mild degenerative changes of the sacroiliac joints with subchondral cystic change and vacuum phenomenon. CT/CT lumbar spine wo IV con IMPRESSION: Images from MRI lumbar spine performed 02/14/2023 are not available to view in PACS at time of dictation due to a technical issue. L4-L5 posterior interbody fusion hardware without hardware complication. Osteophytic ridging at L4-L5 projecting into the neural foramina contributes to apparent moderate right and mild left neural foraminal narrowing with impingement upon the exiting L4 nerve roots. No significant bony spinal canal stenosis. No acute osseous injury. Assessment & Plan Assessment & Plan (1) Discitis of lumbar region: Code(s): M46.46 - Discitis, unspecified, lumbar region Category: Medical (2) Osteomyelitis of lumbar spine: Code(s): M46.26 - Osteomyelitis of vertebra, lumbar region Category: Medical (3) Sacroiliac joint pain: Code(s): M53.3 - Sacrococcygeal disorders, not elsewhere classified Category: Medical (4) Pain of both sacroiliac joints: Code(s): M53.3 - Sacrococcygeal disorders, not elsewhere classified Category: Medical (5) Sacroiliac joint dysfunction of both sides: Code(s): M53.3 - Sacrococcygeal disorders, not elsewhere classified Category: Medical (6) Sacroiliitis: Code(s): M46.1 - Sacroiliitis, not elsewhere classified Category: Medical Plan 1. Lumbar spine MRI results reviewed CT scan results are reviewed, there is no significant issues which could be indicative of the pain syndrome presented by the patient. 2. To rule out possible sacroiliitis I preferred to perform bilateral sacroiliac joint injection before we go for SCS trial. If the sacroiliac joint pathology will be demonstrated by the injections the treatment will be addressed to those sacroiliac joints. If the results of sacroiliac joint injections will be negative we will send her for psychological evaluation in preparation for [employer] spinal cord stimulator. 3. Possibility exists on difficulty of getting this patient the psychological approval for SCS procedure. Patient Instructions: I here by testify that I spent 35 minutes in conversation with this patient as well as planning her care and organizing this note. Coding Level of Care Code Tele Est Pt Level 4 (03888) Diagnoses Discitis of lumbar region M46.46 Osteomyelitis of lumbar spine M46.26 Sacroiliac joint pain M53.3 Pain of both sacroiliac joints M53.3 Sacroiliac joint dysfunction of both sides M53.3 Sacroiliitis M46.1
== END 2024-02-19 11:58 | disposition home or self-care (01) ==
LOC: HO.PMC 11:41
PROVIDERS: PCP Internal Medicine; Visit Provider Anesthesiology
DX: M46.46 Discitis, unspecified, lumbar region (principal); M46.26 Osteomyelitis of vertebra, lumbar region; M46.1 Sacroiliitis, not elsewhere classified
CPT/HCPCS: 99214

== ENCOUNTER 2024-04-21 06:10 | Outpatient (REF) | payer OTHER, SELFPAY | END 2024-04-21 06:11 | disposition home or self-care (01) | LOC: CF 06:10 | PROVIDERS: Visit Provider Anesthesiology | DX: Z13.89 Encounter for screening for other disorder (principal) ==

== ENCOUNTER 2024-07-01 13:34 | Outpatient (AMB) | payer OTHER, SELFPAY ==
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
--- OUTSIDE RECORDS SUMMARY | 2024-07-01 16:08 | XMS_ITS | Clinical Summary ---
Author Organization [facility] Address [address] [place] [address] Care Team Providers Care Land Manager Name Role Phone Unavailable Primary Care Provider Unavailabl e Medications No known medications Active Problems Problem Noted Date Diagnosed Date Suicide attempt by beta zak overdose, initia l encounter 03/03/2021 Social History Tobacco Use Types Packs/Day Years Used Date Smoking Tobacco: Unknown Sex and Gender Information Value Date Recorded Sex Assigned at Female 03/06/2021 11:25 AM EST Gender Identity Not on file Sexual Orientation Not on file Job Start Date Occupation Industry Not on file Not on file Not on file Last Filed Vital Signs Vital Sign Reading Time Taken Comments Blood Pressure 115/74 03/08/2021 4:54 AM EST Pulse 66 03/08/2021 4:54 AM EST Temperature 36 ??C (96.8 ??F) 03/08/2021 4:54 AM EST Respiratory Rate 20 03/08/2021 4:54 AM EST Oxygen Saturation 99% 03/08/2021 4:54 AM EST Inhaled Oxygen Concentration - - Weight 77.6 kg (171 lb 1.2 oz) 03/08/2021 4:12 A M EST Height 167.6 cm (5' 6 ) 03/05/2021 2:32 AM EST Body Mass Index 27.61 03/05/2021 2:32 AM EST Plan of Treatment Health Maintenance Due Date Last Done Comments Hepatitis B Vaccines (1 of 3 - 3-dose series) 1983 Hepatitis C Screening 1983 COVID-19 Vaccine (#1) 1983 Depression Screening 1995 BMI Counseling 2001 Preventative Health Evaluation 2001 DTap / Tdap / Td (1 - Tdap) 2002 Cervical Cancer Screening (P ap Smear) 2004 Influenza Vaccine (#1) 2023 Pneumococcal Vaccine Aged Out No long er eligible based on patient's age to complete this topic RSV Ped < 20 months Aged Out No longe r eligible based on patient's age to complete this topic Advance Directives For more information, please contact: [phone] Latest Code Status on File Code Status Date Activated Date Inactivated Comments Full Code 03/03/2021 7:13 AM 03/08/2021 4:15 PM This code status was ascertained in the following way: discussion with patient .
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
--- OUTSIDE RECORDS SUMMARY | 2024-07-01 16:08 | XMS_ITS | Encounter Summary ---
Author Organization [facility] Address [address] [place] [address] Care Team Providers Care Information Technology Program Manager Name Role Phone Calvin Caldera MD Primary Care Provider [phone] [phone] Reason for Visit * Reason Comments STI Screening Encounter Details Date Type Department Care Team (Late st Contact Info) Description 06/02/2024 9:15 AM EST Office Visit Obstetrics and Gynecology - [address] [phone] Alexandria Doyle CNM [address] [place] [address] Screen for STD (sexually transmitted disease) (Primary Dx); test negative Social History Tobacco Use Types Packs/Day Years [...] on file documented as of this encounter Last Filed Vital Signs Vital Sign Reading Time Taken Comments Blood Pressure - - Pulse 69 06/02/2024 9:22 AM EST Temperature - - Respiratory Rate 18 06/02/2024 9:22 AM EST Oxygen Saturation - - Inhaled Oxygen Concentration - - Weight 71.8 kg (158 lb 3.2 oz) 06/02/2024 9:22 A M EST Height - - Body Mass Index 24.78 12/23/2023 1:08 PM EDT documented in this encounter Progress Notes * Alexandria Doyle CNM - 06/02/2024 9:15 AM EST Images from the original note were not included. CHIEF COMPLAINT: STI Screening IDENTIFIER:Vero Cash is a 39 y.o. female HPI: Pt presents today for testing for STD. She is suspecting that is not faithful, and would like full testing. Also having thick vag discharge, no odor or itch. ROS: GENERAL: normal BREAST: negative for breast lumps : negative MANAGEMENT NURSE RN: white discharge PAST MEDICAL HISTORY: OB History Para Term AB Living 8 1 1 7 2 SAB IAB Ectopic Multiple Live Births 4 3 1 2 # Outcome Date GA Lbr Miguel/2nd Weight Sex Type Anes PTL Lv 8 SAB 04/2018 7A 02/23/05 35w2d 1847 g (65.2 oz) F Vag-Breech EPI HARRIET Comments: delivered vaginal breech 7B 02/23/05 35w2d 1889 g (66.6 oz) F Vag-Spont EPI HARRIET Comments: Valencia-Di twins - delivered vertex 6 SAB 5 IAB Comments: Pills 4 IAB Comments: Pills 3 IAB Comments: pills 2 SAB 1 SAB Patient Active Problem List Diagnosis ASCUS with positive high risk HPV cervical Asthma Back pain Degenerative lumbar disc Depression Depression with anxiety Dysplasia of cervix (uteri) Essential hypertension Hidradenitis HSV infection PTSD (post-traumatic stress disorder) SOCIAL HISTORY: Social History Tobacco Use Smoking status: Some Days Current packs/day: 0.10 Types: Cigarettes Smokeless tobacco: Never Substance Use Topics Alcohol use: Not Currently Comment: occ Drug use: Yes Types: Marijuana/Cannabis FAMILY HISTORY: Family History Problem Relation Name Age of Onset No Known Problems Father murder Hypertension Mother No Known Problems Brother No Known Problems Sister Breast cancer Maternal Grandmother 52.00 I have reviewed the following sections of the chart: active problem list MEDICATIONS: Your medication list Accurate as of June 02, 2024 9:48 AM. If you have any questions, ask your nurse or doctor. CONTINUE taking these medications Instructions Last Dose Given Next Dose Due albuterol HFA 90 mcg/actuation inhaler Commonly known as: PROAIR HFA ; PROVENTIL HFA ; VENTOLIN HFA Inhale 2 Puffs into the lungs every 6 hours as needed for Cough or Wheezing. buPROPion XL 150 mg 24 hr tablet Commonly known as: WELLBUTRIN XL Take 1 Tablet by mouth 2 times daily. clindamycin phosphate 1 % gel, once daily Apply small amount to vulva BID as needed for inflammation cloNIDine 0.2 mg tablet Commonly known as: CATAPRES Take 1 Tablet by mouth 3 times daily as needed. clotrimazole-betamethasone 1-0.05 % cream Commonly known as: LOTRISONE APPLY SPARINGLY TO AFFECTED AREA TWICE A DAY FOR UP TO 2 WEEKS cyclobenzaprine 10 mg tablet Commonly known as: FLEXERIL Take 0.5-1 Tablets by mouth at bedtime as needed for Muscle spasms. diclofenac 1 % topical gel Commonly known as: VOLTAREN Apply 4 g topically 4 times daily. diclofenac 75 mg EC tablet Commonly known as: VOLTAREN Take 1 Tablet by mouth 2 times daily for 180 days. FLUoxetine 20 mg tablet Commonly known as: PROzac Take 1 Tablet by mouth 2 times daily. hydrOXYzine HCL 25 mg tablet Commonly known as: ATARAX TAKE 1-2 TABLETS BY MOUTH TWICE A DAY PANIC ATTACK/INCREASED ANXIETY miscellaneous medical supply misc INCONTINENCE SUPPLY DISPOSABLE (DISPOS UNDERPADS/90G/30 X36 ) MISC 2 Each by Does not apply route at bedtime as needed (for incontinence dx: R32.0). nicotine 21-14-7 mg/24 hr patch, TD daily, sequential Place 1 patch on the skin 1 (one) time each day at the same time. OXcarbazepine 150 mg tablet Commonly known as: TRILEPTAL Take 1 Tablet by mouth 2 times daily. valACYclovir 500 mg tablet Commonly known as: VALTREX Take 1 Tablet by mouth daily. Contraception: Nothing ALLERGIES: Allergies Allergen Reactions Lorazepam PHYSICAL EXAM: Visit Vitals Pulse 69 Resp 18 Wt 71.8 kg (158 lb 3.2 oz) LMP 05/08/2024 (Approximate) BMI 24.78 kg/m?? OB Status Having periods Smoking Status Some Days BSA 1.83 m?? APPEARANCE:Healthy, alert, active, cooperative, and in no distress ABDOMEN: soft, non-tender; bowel sounds normal; no masses, no organomegaly EXTERNAL GENITALIA: vaginal discharge noted and normal vagina and normal vaginal tone URETHRA: midline with no erythema, mass or drainage VAGINA: normal mucosa, curd-like discharge CERVIX: nulliparious appearance UTERUS: normal size, contour, position, consistency, mobility, non-tender PSYCH: affect appropriate LABS: ASSESSMENT: 1. Screen for STD (sexually transmitted disease) 2. test negative PLAN: Education reviewed: safe sex/STD prevention. STD testing done, will treat as indicated. Orders Placed This Encounter Procedures Chlamydia trachomatis and Neisseria gonorrhoeae molecular study Wet prep, genital Treponema pallidum antibody with reflex to RPR and particle agglutination HIV 1,2 antibody, p24 antigen with reflex to differentiation Hepatitis C antibody POC , urine manually resulted Alexandria Doyle CNM documented in this encounter Plan of Treatment Upcoming Encounters Date Type Department Care Team (Late st Contact Info) Description 07/16/2024 11:30 AM EDT Office Visit Internal Medicine - [address] [address] Calvin Caldera MD [address] [place] [address] documented as of this encounter Procedures Procedure Name Priority Date/Time Associated Diagnosis Comments TRICHOMONAS VAGINALIS ANTIGEN Routine 06/02/2024 10:02 AM EST Screen for STD (sexually transmitted disease) CHLAMYDIA TRACHOMATIS AND NEISSERIA GONORRHOEAE PCR Routine 06/02/2024 10:02 AM EST Screen for STD (sexually transmitted disease) WET PREP, GENITAL Routine 06/02/2024 10: 02 AM EST Screen for STD (sexually transmitted disease) POC , URINE DIAGNOSTIC Routine 06/02/2024 9:31 AM EST test negative documented in this encounter Results * Hepatitis C antibody (06/08/2024 11:59 AM EST) Hepatitis C Antibody Negative Negative LAB CHEMISTRY METHOD 06/08/2024 4:55 PM EST [facility] Blood Venous blood specimen / Unknown Venipuncture / Unknown 06/08/2024 11:59 AM EST 06/08/2024 11:59 AM EST Alexandria Doyle [facility] BLOOD ORDERABLES Final R esult Performing Organization Address City/[facility] Co de Phone Number [facility] [address] [place] [address], [place] [phone] * HIV 1,2 antibody, p24 antigen with reflex to differentiation (06/08/2024 11:59 AM EST) HIV Combo AB/AG Negative Negative LAB CHEMISTRY METHOD 06/08/2024 4:55 PM EST [facility] Blood Venous blood specimen / Unknown Venipuncture / Unknown 06/08/2024 11:59 AM EST 06/08/2024 11:59 AM EST Narrative [facility] - 06/08/2024 4:55 PM EST This assay is a 4th generation assay allowing for earlier detection of HIV infection by detecting the presence of the HIV-1 p24 antigen as well as the traditional antibodies to HIV type 1 (including group O) and type 2. ??Use of a 4th generation assay is the current CDC recommendation for HIV screening. Alexandria Doyle [facility] BLOOD ORDERABLES Final R esult Performing Organization Address [facility] Co de Phone Number [facility] [address] [place] [address], [place] [phone] * Treponema pallidum antibody with reflex to RPR and particle agglutination (06/08/2024 11:59 AM EST) T. Pallidum Antibodies Negative Negative LAB CHEMISTRY METHOD 06/08/2024 4:26 PM EST [facility] Blood Venous blood specimen / Unknown Venipuncture / Unknown 06/08/2024 11:59 AM EST 06/08/2024 11:59 AM EST Alexandria Doyle [facility] BLOOD ORDERABLES Final R esult Performing Organization Address City/[facility]/ZIP Co de Phone Number [facility] [address] [place] [address], [place] [phone] * Trichomonas vaginalis antigen (06/02/2024 10:02 AM EST) Trichomonas vaginalis Negative Negative 06/02/2024 9:25 PM EST [facility] Swab Vaginal structure / Unknown Non-blood Collection / Unknown 06/02/2024 10:02 AM EST 06/02/2024 10:02 AM EST us Alexandria Doyle CNM LAB MICROBIOLOGY - GENERAL O RDERABLES Final Result Performing Organization Address [facility] Co de Phone Number [facility] [address] [place] [address], [place] [phone] * (ABNORMAL) Wet prep, genital (06/02/2024 10:02 AM EST) Pathologist [facility] Clue Cells, Wet Prep Negative Negative 06/02/2024 9:25 PM EST [facility] Yeast, Wet Prep Positive(A) Negative 06/02/2024 9:25 PM EST [facility] Trichomonas, Wet Prep Indeterminate Negative 06/02/2024 9:25 PM EST [facility] Comment:Refer to Trichomonas antigen. Swab Vaginal structure / Unknown Non-blood Collection / Unknown 06/02/2024 10:02 AM EST 06/02/2024 10:02 AM EST us Alexandria Doyle CNM LAB MICROBIOLOGY - GENERAL O RDERABLES Final Result Performing Organization Address [facility]/ZIP Co de Phone Number [facility] [address] [place] [address], [place] [phone] * Chlamydia trachomatis and Neisseria gonorrhoeae molecular study (06/02/2024 10:02 AM EST) Neisseria gonorrhoeae PCR Negative Negative LAB MOLECULAR DIAGNOSTICS METHOD 06/03/2024 9:36 AM EST [facility] Chlamydia trachomatis PCR Negative Negative LAB MOLECULAR DIAGNOSTICS METHOD 06/03/2024 9:36 AM EST [facility] Swab Vaginal structure / Unknown Non-blood Collection / Unknown 06/02/2024 10:02 AM EST 06/02/2024 10:02 AM EST Alexandria Doyle CNM LAB MICROBIOLOGY - GENERAL O RDERABLES Final Result [facility] [address] [place] [address], * POC , urine manually resulted (06/02/2024 9:31 AM EST) HCG, Ur POC Negative Negative POC hCG Int QC Pass? Yes Yes Urine Urine specimen obtained by clean catch procedure / Unknown 06/02/2024 9:31 AM EST Alexandria Doyle CNM POINT OF CARE TEST ENTER/PADMINI T ORDERABLES Final Result documented in this encounter Visit Diagnoses Diagnosis Screen for STD (sexually transmitted disease)- Primary Screening examination for venereal disease test negative documented in this encounter Care Teams Information Technology Program Manager Relationship Specialty Start Date End Date Calvin Caldera MD [address] [place] [phone] PCP - General Internal Medicine 08/09/17 documented as of this encounter
--- OUTSIDE RECORDS SUMMARY | 2024-07-01 16:08 | XMS_ITS | Encounter Summary ---
Author Organization [facility] Address [address] [place] [phone] Care Team Providers Care Lining Stuffer Name Role Phone Calvin Caldera MD Primary Care Provider [phone] Reason for Visit * Reason Onset Date Comments Results 06/03/2024 Encounter Details Date Type Department Care Team (Late Contact Info) Description 06/03/2024 [facility] [address] Nicole Boswell MA Results Social History Tobacco Use Types Packs/Day Years [...] as of this encounter Progress Notes * Nicole Boswell MA - 06/04/2024 1:22 PM EST See result note for documentation. * Nicloe Boswell MA - 06/03/2024 9:14 AM EST Left message for pt to return call to office. documented in this encounter Plan of Treatment Upcoming Encounters Date Type Department Care Team (Late Contact Info) Description 07/16/2024 11:30 AM EDT [facility] [address] [place] [phone] Calvin Caldera MD [address] [place] [address] documented as of this encounter Visit Diagnoses Not on filedocumented in this encounter Care Teams Lining Stuffer Relationship Specialty Start Date End Date Calvin Caldera MD [address] [place] [address] PCP - General Internal Medicine 08/09/17 documented as of this encounter
--- OUTSIDE RECORDS SUMMARY | 2024-07-01 16:08 | XMS_ITS | Encounter Summary ---
Author Organization [facility] Address [address] [place] [address] Care Team Providers Care Box Turner Name Role Phone Calvin Caldera MD Primary Care Provider [phone] [phone] Reason for Visit * Imaging (Routine) - Closed Specialty Diagnoses / Procedures Referred By Kina moseley Referred To Contact Radiology Diagnoses Mass of upper outer quadrant of right breast Procedures US Breast Limited Right US Breast Complete Right Francisca Duncan PA [address] [place] [address] Phone: tel: fax: [facility] Referral ID Status Reason Start Date Expiration Date Visits Re quested Visits Authorized [id number] Closed 05/19/2024 05/19/2025 1 1 Encounter Details Date Type Department Care Team (Latest Contact Info) Description 06/02/2024 12:38 PM EST - 06/02/2024 11:59 PM EST Hospital Encounter [facility] Ultrasound [address] [place] [address] Mass of upper outer quadrant of right breast Discharge Disposition: Home or Self Care Social History Tobacco Use Types Packs/Day Years [...] on file documented as of this encounter Medications at Time of Discharge albuterol HFA (PROAIR HFA ; PROVENTIL HFA ; VENTOLIN HFA) 90 mcg/actuation inhaler Inhale 2 Puffs into the lungs every 6 hours as needed for Cough or Wheezing. 04/17/2023 buPROPion XL (WELLBUTRIN XL) 150 mg 24 hr tablet Take 1 Tablet by mouth 2 times daily. 01/03/2023 clindamycin phosphate 1 % gel, once daily Apply small amount to vulva BID as needed for inflammation 04/11/2023 cloNIDine (CATAPRES) 0.2 mg tablet Take 1 Tablet by mouth 3 times daily as needed. 01/03/2023 clotrimazole-bet amethasone (LOTRISONE) 1-0.05 % cream APPLY SPARINGLY TO AFFECTED AREA TWICE A DAY FOR UP TO 2 WEEKS 06/26/2023 cyclobenzaprine (FLEXERIL) 10 mg tablet Take 0.5-1 Tablets by mouth at bedtime as needed for Muscle spasms. 10 tablet 05/12/2024 diclofenac (VOLTAREN) 1 % topical gel Apply 4 g topically 4 times daily. 01/23/2024 diclofenac (VOLTAREN) 75 mg EC tablet Take 1 Tablet by mouth 2 times daily for 180 days. 01/23/2024 FLUoxetine (PROzac) 20 mg tablet Take 1 Tablet by mouth 2 times daily. 01/03/2023 hydrOXYzine HCL (ATARAX) 25 mg tablet TAKE 1-2 TABLETS BY MOUTH TWICE A DAY PANIC ATTACK/INCREASED ANXIETY 04/27/2024 miscellaneous medical supply misc INCONTINENCE SUPPLY DISPOSABLE (DISPOS UNDERPADS/90G/30 X 36 ) MISC 2 Each by Does not apply route at bedtime as needed (for incontinence dx: R32.0). 08/07/2021 nicotine 21-14-7 mg/24 hr patch, TD daily, sequential Place 1 patch on the skin 1 (one) time each day at the same time. 56 each 05/29/2024 OXcarbazepine (TRILEPTAL) 150 mg tablet Take 1 Tablet by mouth 2 times daily. 01/03/2023 valACYclovir (VALTREX) 500 mg tablet Take 1 Tablet by mouth daily. 11/14/2022 documented as of this encounter Discharge Disposition Disposition Code Departure Means Destination Home or Self Care documented in this encounter Plan of Treatment Upcoming Encounters Date Type Department Care Team (Late st Contact Info) Description 07/16/2024 11:30 AM EDT [facility] [address] [place], [place] [phone] Calvin Caldera MD [address] [place] [address] documented as of this encounter Procedures Procedure Name Priority Date/Time Associated Diagnosis Comments US BREAST LIMITED RIGHT Routine 06/02/2024 1:07 PM EST Mass of upper outer quadrant of right breast documented in this encounter Results * US Breast Limited Right (06/02/2024 1:07 [...] Signed Date: 06/02/2024 13:14 ET Workstation ID: [id number] Transcribed By: Self Edit Transcribed Date: 06/02/2024 [...] Signed Date: 06/02/2024 13:14 ET Workstation ID: [id number] Transcribed By: Self Edit Transcribed Date: 06/02/2024 13:06 ET us Francisca RODRÍGUEZ IMG US PROCEDURES Final Resu lt documented in this encounter Visit Diagnoses Diagnosis Mass of upper outer quadrant of right breast documented in this encounter Care Teams Box Turner Relationship Specialty Start Date End Date Calvin Caldera MD [address] [place] [address] PCP - General Internal Medicine 08/09/17 documented as of this encounter
--- OUTSIDE RECORDS SUMMARY | 2024-07-01 16:08 | XMS_ITS | Encounter Summary ---
Author Organization [facility] Address [address] [place] [address] Care Team Providers Care Forensic Social Worker Name Role Phone Calvin Caldera MD Primary Care Provider [phone] Reason for Visit * Reason Onset Date Comments pt1 06/29/2024 Encounter Details Date Type Department Care Team (Late st Contact Info) Description 06/29/2024 Telephone Internal Medicine - [facility] [address] [place] [address] Calvin Caldera MD [address] [place] [address] pt1 Social History Tobacco Use Types Packs/Day Years [...] Progress Notes * Sebastián Thompson MA - 06/30/2024 4:35 PM EDT See message from earlier today / Received a call from [employer] Mental Health Coordinatorasking about the process of PT1 forms and to see if they were done. I explained due to HIPAA I would not release any information that they were completed and patient was left a message to return my call for the Authorization #'s * Sebastián Thompson MA - 06/30/2024 1:10 PM EDT A message was left to have patient return call to Adult Medicine DME/ PT1 dept #[phone] #4 pt1 forms were submitted on line to [email or web address] Today they are showing to be approved until 06.29.2025 Auth #'s [id number], [id number] , [id number], [id number] #3/ month for 1 year * Chloe Pack - 06/29/2024 3:50 PM EDT [employer] Mental Health Coordinator from the [place] [employer]. Calling to speak to someonein regards to this issue. Pt has been calling the police dept about this. She can be reached at [phone] * Sebastián Thompson MA - 06/29/2024 11:53 AM EDT Spoke with Nicolasa (BS[employer]) patient is upset that we are not doing our jobs The PT1 forms have been done several times , it was done on Saturday06.26.24 with Ms. Cash on the phone and I gave her the [id number] # / At this point I think the patient should call the [employer] info line to see why the request has not been getting authorized or showing on the PT1 form site. The patients other requests are showing See 06.26.24 message Tracking #'s are [id number], [id number] and [id number] however they are not showing on the site PT I form was completed / submitted on line again today 06.29.24 with [email or web address] PT 1 tracking # is: [id number] * Jennifer Salgado - 06/29/2024 11:06 AM EDT Pt would like a call back to go over pt-1 that pt has not been able to book appt for, resending pt1to clinical ppol PT-1 Request Call [employer] new provider or submitter number is [id number] Verify and document patients [place] Health insurance ID # (NOT [facility] ID): [id number] Payor: [employer] / Plan: [employer]ICA[employer] / Product Type: *No Product type* / Patient mailing address: [address] [place], [place] [address] [facility] [address] (home) Pt. demographics verified? yes If not accurate, update registration. Is this a NEW request or a RENEWAL? New request Name of treating facility: [facility] Name (first & last) of treating provider? required : Dr Iain Mckeon What is the medical reason why the patient is seeing the above provider? surgery Address/Zip code for treating provider: [address] [place] [address] Dr SANCHEZ, [place] [address] Phone # for treating provider: [phone] Is the provider in the [facility] network (do they accept [place] Health insurance)? yes What specialtly is this provider? surgery When is the visit scheduled for? tbd How often you will be seeing this particular provider? 3 times a month Do you have friends or family who can transport you to this visit? no If yes, do not complete request. Is there anything stopping you from using public transportation? If yes, explain: no Is there a medical reason (diagnosis) why you are unable to use public transportation? If yes, explain: Yes,back injuries Does patient carry self-administered oxygen? yes Does patient require door through door or [...] height, width & length of the wheelchair? no Do you need an escort to accompany [...] AM EDT Office Visit Internal Medicine - [address] [phone] Calvin Caldera MD [address] [place] [address] documented as of this encounter Visit Diagnoses Not on filedocumented in this encounter Care Teams Forensic Social Worker Relationship Specialty Start Date End Date Calvin Caldera MD [address] [place] [address] PCP - General Internal Medicine 08/09/17 documented as of this encounter
--- OUTSIDE RECORDS SUMMARY | 2024-07-01 16:08 | XMS_ITS | Encounter Summary ---
Author Organization [facility] Address [address] [place] [address] Care Team Providers Care Tunnel Man Name Role Phone Calvin Caldera MD Primary Care Provider [phone] [phone] Reason for Visit * Reason Onset Date Comments letter request 06/09/2024 Encounter Details Date Type Department Care Team (Late st Contact Info) Description 06/09/2024 Telephone Internal Medicine - [facility] [address] [place] [address] Calvin Caldera MD [address] [place] [address] letter request Social History Tobacco Use Types Packs/Day Years [...] as of this encounter Progress Notes * Camille Glover MA - 06/11/2024 8:45 AM EST Spoke with pt, advised we do not provide such letters. Pt states her pain management provider told her to get it from her PCP. Advise pt to find medical marijuana provider in the community. Pt verbalizes understanding. * Camille Glover MA - 06/10/2024 3:45 PM EST 2nd Msg left for pt to return my call. * Camille Glover MA - 06/09/2024 1:11 PM EST Msg left for pt to return my call. * Joshua Beltran - 06/09/2024 11:32 AM EST Letter Request : Who is requesting letter : Vero Cash What is this letter needed for? : medical marijuana Any specifics that need to be noted: not applicable Reason for letter : needs letter of recommendation from PCP for medical marijuana card How does patient want to obtain letter : Will bean picker-call when completed: (home) documented in this encounter Plan of Treatment Upcoming Encounters Date Type Department Care Team (Late st Contact Info) Description 07/16/2024 11:30 AM EDT [facility] [address] [place] [address] Calvin Caldera MD [address] [place] [address] documented as of this encounter Visit Diagnoses Not on filedocumented in this encounter Care Teams Tunnel Man Relationship Specialty Start Date End Date Calvin Caldera MD [address] [place] [address] PCP - General Internal Medicine 08/09/17 documented as of this encounter
--- OUTSIDE RECORDS SUMMARY | 2024-07-01 16:08 | XMS_ITS | Encounter Summary ---
Author Organization [facility] Address [address] [place] [phone] Care Team Providers Care Apprentice Photographer Name Role Phone Calvin Caldera MD Primary Care Provider [phone] Reason for Visit * Reason Onset Date Comments PT1 06/25/2024 Dr Joseph cobb - Neurosurgeon/[facility] Encounter Details Date Type Department Care Team (Late st Contact Info) Description 06/25/2024 Telephone Internal Medicine - [address] [phone] Calvin Caldera MD [address] [place] [phone] PT1 (Dr Joseph Mckeon - Neurosurgeon/[facility]) Social History Tobacco Use Types Packs/Day Years [...] as of this encounter Progress Notes * Dania Persaud MA - 06/25/2024 2:41 PM EDT PT-1 Auth # [id number] good for 3 visits per month for 1 yr. * Armida Omer - 06/25/2024 1:09 PM EDT PT-1 Request Call [facility] new provider or submitter number is [id number] Verify and document patients [place] Health insurance ID # (NOT [facility] ID): [id number] Payor: [employer] PLAN / Plan: [employer] MEDICAID / Product Type: *No Product type* / Patient mailing [facility] [address] [facility] [address] (home) Pt. demographics verified? yes If not accurate, update registration. Is this a NEW request or a RENEWAL? New request Name of treating facility: [facility] Name (first & last) of treating provider? required : Dr Iain Mckeon What is the medical reason why the patient is seeing the above provider? surgery Address/Zip code for treating provider: [address] [place] [address] Dr SANCHEZ, [place] [address] Phone # for treating provider: [phone] Is the provider in the [facility] (do they accept [place] Health insurance)? yes What specialtly is this [...] Upcoming Encounters Date Type Department Care Team ([facility] st Contact Info) Description 07/16/2024 11:30 AM EDT Office Visit Internal Medicine - [address] [phone] Calvin Caldera MD [address] [place] [phone] documented as of this encounter Visit Diagnoses Not on filedocumented in this encounter Care Teams Apprentice Photographer Relationship Specialty Start Date End Date Calvin Caldera MD [address] [place] [phone] PCP - General Internal Medicine 08/09/17 documented as of this encounter
--- OUTSIDE RECORDS SUMMARY | 2024-07-01 16:08 | XMS_ITS | Encounter Summary ---
Author Organization [facility] Address [address] [place] [address] Care Team Providers Care Telephone Clerks Supervisor Name Role Phone Calvin Caldera MD Primary Care Provider [phone] Reason for Visit * Reason Onset Date Comments provider call back 06/26/2024 Encounter Details Date Type Department Care Team (Late st Contact Info) Description 06/26/2024 [facility] [address] [place] [phone] Calvin Caldera MD [address] [place] [phone] provider call back Social History Tobacco Use Types Packs/Day Years [...] Progress Notes * Sebastián Thompson MA - 06/26/2024 3:29 PM EDT PT I form was completed / submitted on line with [employer] PT 1 tracking #[id number] #3/year Patient was called and made aware that this was corrected / It is pending at this time/ Patient aware to speak with Torrie Walsh regarding Urgent Pt1's or errors . * Rosario Pacheco - 06/26/2024 12:18 PM EDT Patient calling in very upset. She is speaking about a glass being on her account, her Pt1's being messed up. Patient states that whoever is looking at her account in the system breaks the glass and their names are being taken, Patient crying and stating that this needs to be taken care of. Please call patient back at [phone]. documented in this encounter Plan of Treatment Upcoming Encounters Date Type Department Care Team (Late st Contact Info) Description 07/16/2024 11:30 AM EDT Office Visit Internal Medicine - [address] [phone] Calvin Caldera MD [address] [place] [phone] documented as of this encounter Visit Diagnoses Not on filedocumented in this encounter Care Teams Telephone Clerks Supervisor Relationship Specialty Start Date End Date Calvin Caldera MD [address] [place] [phone] PCP - General Internal Medicine 08/09/17 documented as of this encounter
--- OUTSIDE RECORDS SUMMARY | 2024-07-01 16:08 | XMS_ITS | Encounter Summary ---
Author Organization [facility] Address [address] [place] [phone] Care Team Providers Care Mri Specialist Name Role Phone Calvin Caldera MD Primary Care Provider [phone] Reason for Visit * Reason Onset Date Comments Results 06/12/2024 Encounter Details Date Type Department Care Team (Late st Contact Info) Description 06/12/2024 Telephone Obstetrics and Gynecology - [address] [phone] Alexandria Doyle CNM [address] [place] [phone] Results Social History Tobacco Use Types Packs/Day [...] as of this encounter Progress Notes * Heather Peres RN - 06/12/2024 10:15 AM EST Pt called and notified of her results. Component Latest Ref Rng 06/08/2024 T pallidum Antibodies Negative Negative HIV Combo AB/AG Negative Negative Hepatitis C Antibody Negative Negative GC/CT/Trich negative BV negative Yeast positive - treated diflucan * Eileen Burnett - 06/12/2024 10:13 AM EST Inform patient: ANY URGENT OR ABNORMAL RESULTS WIILL RESULT IN A CALL BACK TO THE PATIENT ELHAM. Type of test: :blood Date test was performed: 06/08/24 Where was the test performed: [address] [place] [phone] Who ordered this test?: Alexandria Doyle CNM Is the doctor here today?: Yes Can the message wait until the doctor returns?: No re documented in this encounter Plan of Treatment Upcoming Encounters Date Type Department Care Team (Late st Contact Info) Description 07/16/2024 11:30 AM EDT Office Visit Internal Medicine - [address] [phone] Calvin Caldera MD [address] [place] [phone] documented as of this encounter Visit Diagnoses Not on filedocumented in this encounter Care Teams Mri Specialist Relationship Specialty Start Date End Date Calvin Caledra MD [address] [place] [phone] PCP - General Internal Medicine 08/09/17 documented as of this encounter
--- OUTSIDE RECORDS SUMMARY | 2024-07-01 16:08 | XMS_ITS | Encounter Summary ---
Author Organization [facility] Address [address] [place] [address] Care Team Providers Care Manager Advertising Name Role Phone Calvin Caldera MD Primary Care Provider [phone] Reason for Visit * Reason Onset Date Comments Earache 05/11/2024 Encounter Details Date Type Department Care Team (Late st Contact Info) Description 05/11/2024 Telephone Internal Medicine - [facility] [address] [place] [phone] Calvin Caldera MD [address] [place] [phone] Earache Social History Tobacco Use Types Packs/Day Years Used Date Smoking Tobacco: Some Days Cigarettes Smokeless Tobacco: Never Alcohol Use Standard Drinks/Week Comments Not Currently 0 (1 standard drink = 0.6 oz pur e alcohol) Comments Unknown Sex and Gender Information Value Date Recorded Sex Assigned at Not on file Legal Sex Female 1:54 AM EST Gender Identity Not on file Sexual Orientation Not on file documented as of this encounter Progress Notes * Lian Lowery LPN - 05/11/2024 4:32 PM EST Spoke with pt she states both of her ears have congestion blocking then unblocking. Pt states it only hurts when out in the cold. Advised pt to take OTC decongestant and if she needs to be seen earlier than OV to call UC but still come to this appt for f/u. She agreed Appt 06/03 @ 0900 with Pilar * Gracie Montes - 05/11/2024 3:50 PM EST Patient call requires triage: Symptoms patient is presenting: pt states her both ears hurt. She feels this weird suction and its causing her to feel dizzy. She doesn't want to fall because she has back pain as well. She would like to be seen efe How long has patient had these symptoms?: over a week PCP: Calvin Caldera MD Payor: [email or web address] PLAN / Plan: [employer] MEDICAID / Product Type: *No Product type* / documented in this encounter Plan of Treatment Upcoming Encounters Date Type Department Care Team (Late st Contact Info) Description 07/16/2024 11:30 AM EDT Office Visit Internal Medicine - [address] [phone] Calvin Caldera MD [address] [place] [phone] documented as of this encounter Visit Diagnoses Not on filedocumented in this encounter Care Teams Manager Advertising Relationship Specialty Start Date End Date Calvin Caldera MD [address] [place] [phone] PCP - General Internal Medicine 08/09/17 documented as of this encounter
--- OUTSIDE RECORDS SUMMARY | 2024-07-01 16:08 | XMS_ITS | Clinical Summary ---
Author Organization [facility] Address [address] [place] [address] Care Team Providers Care Environmental Tech Name Role Phone Pcp, No Primary Care Provider Unavailabl e Allergies Active Allergy Reactions Criticality Noted Date Comments Lorazepam Unknown/Patient and Family Unable to Define Medium 01/23/2021 Social History Tobacco Use Types Packs/Day Years Used Date Smoking Tobacco: Never Assessed Sex and Gender Information Value Date Recorded Sex Assigned at Not on file Gender Identity Not on file Sexual Orientation Not on file Last Filed Vital Signs Vital Sign Reading Time Taken Comments Blood Pressure 144/78 01/23/2021 2:58 AM EDT Pulse 110 01/23/2021 2:58 AM EDT Temperature 36.4 ??C (97.6 ??F) 01/23/2021 2:58 AM ED T Respiratory Rate 18 01/23/2021 2:58 AM EDT Oxygen Saturation 98% 01/23/2021 2:58 AM EDT Inhaled Oxygen Concentration - - Weight - - Height - - Body Mass Index - - Plan of Treatment Health Maintenance Due Date Last Done Comments Hepatitis C Virus Screening 1983 HIV Screening 1996 DTaP/Tdap/Td Vaccines (1 - Tdap) 2002 Hepatitis B Vaccines (1 of 3 - 19+ 3-dose series) 2002 Pap Smear (Ages 21-65) 2004 Mammogram 2023 Influenza Vaccine 11/07/2023 COVID-19 Vaccine ( - 2023-2 5 season) 2023 HPV Vaccines Aged Out No longer eligi ble based on patient's age to complete this topic Pneumococcal Vaccine: Pediat farzaneh (0-5 Years) and At-Risk Patients (6 to 49 Years) Aged Out No longer eligible b ased on patient's age to complete this topic Care Teams Environmental Tech Relationship Specialty Start Date End Date Pcp, No PCP - General General Medicine 01/23/21
== END 2024-07-01 14:11 | disposition home or self-care (01) ==
LOC: HO.HNS 13:35
PROVIDERS: PCP Family Medicine; Visit Provider Neurological Surgery
DX: Z98.1 Arthrodesis status (principal)
CPT/HCPCS: 99212

== ENCOUNTER → 2024-07-01 13:34 | Outpatient (BNVA) | payer OTHER, SELFPAY | PROVIDERS: PCP Family Medicine; Visit Provider Neurological Surgery | DX: Z98.1 Arthrodesis status (principal) | CPT/HCPCS: 99212 ==

== ENCOUNTER 2024-08-21 09:32 | Emergency (ER) | payer OTHER, SELFPAY ==
--- NOTE | ~2024-08-21 | CT_ITS ---
EXAMINATION: CT ABDOMEN PELVIS WITH IV CONTRAST HISTORY: no bm, back sensation, hx of abd surgery over 20yr COMPARISON: There are no prior studies for comparison. TECHNIQUE: CT scan of the abdomen and pelvis was performed following administration of 85 mL Omnipaque 350 using standard departmental protocol. Coronal and sagittal reformatted images were generated and reviewed. Oral contrast material was not administered at the request of the referring physician. This CT exam was performed with one or more of the following dose reduction techniques: automated exposure control, adjustment of the mA and/or kV according to patient size, use of iterative reconstruction technique. DLP: 452 mGy-cm FINDINGS: LOWER CHEST: The visualized lung bases are clear. There is no pleural effusion. CARDIOVASCULATURE: The heart is normal in size. There is no pericardial effusion. LIVER: The liver is normal in size and contour. No liver mass is identified. The hepatic and portal veins are patent. GALLBLADDER / BILE DUCTS: The gallbladder is unremarkable. There is no intra or extrahepatic biliary ductal dilatation. SPLEEN: The spleen is normal in size. No focal splenic lesion is identified. PANCREAS: The pancreas is unremarkable in appearance. ADRENAL GLANDS: Within normal limits. KIDNEYS/RETROPERITONEUM: No renal calculi are identified. There is no hydronephrosis. No renal masses are identified. LYMPH NODES: No abdominal or pelvic lymphadenopathy. VASCULATURE: The abdominal aorta is normal in caliber. MESENTERY/PERITONEUM: There is trace free fluid in the cul-de-sac. No masses. There is no free intraperitoneal gas. STOMACH: The stomach is collapsed, limiting evaluation. SMALL BOWEL: The small bowel is normal in caliber. COLON: There is a moderate amount of stool in the colon. There is wall thickening of the sigmoid colon compatible with colitis. Scattered diverticula are also noted, although there is no pericolic inflammatory stranding to suggest diverticulitis. APPENDIX: Normal. URINARY BLADDER/PELVIC ORGANS: The urinary bladder is unremarkable. The uterus and ovaries are unremarkable. BONES / SOFT TISSUES: The patient is status post posterior fusion of L4 and L5 with pedicle screws, spinal stabilization rods, and an intervertebral spacer. CT/CT abdomen pelvis w IV con IMPRESSION: Wall thickening of the sigmoid colon, compatible with colitis. Moderate amount of stool throughout the colon. Electronically signed by: John Hua MD 08/21/2024 01:16 PM EDT RP
[2024-08-21 09:39] VITALS: BP 122/78; PULSE 82; RESP 18; TEMP 36.7; O2SAT 97; BMI 22.1
[2024-08-21 09:55] LABS: MANUAL DIFF FLAG NO
[2024-08-21 09:57] LABS: Basophils Absolute Auto 0.1 X10*3/uL (0.0-0.2); Basophils Percent Auto 0.8 % (0-2); Eosinophils Absolute Auto 0.1 X10*3/uL (0.0-0.4); Eosinophils Percent Auto 1.3 % (0-4); Hematocrit 36.7 % (37.0-47.0); Hemoglobin 12.6 g/dl (12.0-16.0); Imm Gran Abs Auto 0.01 X10*3/uL (0.00-0.03); Imm Gran Pct Auto 0.1 % (0.0-0.4); Lymphocytes Absolute Auto 1.8 X10*3/uL (1.2-4.9); Lymphocytes Percent Auto 22.9 % (20-40); Mean Corpuscular HGB Conc 34.3 g/dl (31.0-35.0); Mean Corpuscular Hemoglobin 30.4 pg (27.0-33.0); Mean Corpuscular Volume 88.6 fL (80.0-98.0); Mean Platelet Volume 11.1 fL (9.4-12.3); Monocytes Absolute Auto 0.6 X10*3/uL (0.1-1.2); Monocytes Percent Auto 8.3 % (2-11); Neutrophils Absolute Auto 5.1 x10*3/uL (2.0-8.3); Neutrophils Percent Auto 66.6 % (45-73); Platelet Count 210 X10*3/uL (160-400); Red Blood Count 4.14 X10*6/uL (4.20-5.50); Red Cell Distribution Width 15.4 % (11.0-16.0); White Blood Count 7.6 X10*3/uL (4.8-10.8)
[2024-08-21 10:13] LABS: Anion Gap 13 (12-20); Blood Urea Nitrogen 10 mg/dL (9-16); Calcium 9.5 mg/dL (8.4-10.2); Carbon Dioxide 23 mmol/L (22-29); Chloride 108 mmol/L (96-108); Creatinine Clr Calc Pharmacy 105.8; Estimated Glomerular Filt Rate > 60; Glucose Random 105 mg/dL (60-115); Potassium 3.9 mmol/L (3.3-5.1); Sodium 140 mmol/L (135-145)
--- NOTE | 2024-08-21 10:49 | ED.GENADULT ---
HPI - General Adult General Chief complaint: General Medical Stated complaint: Sent by Physical Therapy Time Seen by Provider: 08/21/24 10:49 History of Present Illness HPI narrative: Patient is a 39-year-old female with a history of depression, anxiety history of spinal fusion back in 2021 history of abdominal surgery as a child which she does not remember why. Patient denies any vaginal discharge denies any fever chills. Claims that she feels a numbness in her abdomen. She can not feel exactly when she needs to go to the bathroom although she has no difficulty eating no difficulty swallowing she has no change in appetite patient is from home able to ambulate without any difficulty no pain radiating from her back. No pain in her lower extremity no weakness in the arms or legs. Patient stated that she can not feel her vaginal area. She is sexually active. She actively tried to manually disimpact herself. Related Data Home Medications ?Medication ?Instructions ?Recorded ?Confirmed multivitamin (Daily Multi-Vitamin 1 tab PO DAILY 05/19/21 05/19/21 tablet) clindamycin phosphate 1 % topical topical BID PRN 12/03/22 gel clonidine HCl 0.2 mg tablet 0.2 mg PO BEDTIME 12/03/22 fluoxetine 40 mg capsule 40 mg PO DAILY 12/03/22 oxcarbazepine 150 mg tablet 150 mg PO BID 12/03/22 valacyclovir 500 mg tablet 500 mg PO DAILY 12/03/22 Previous Rx's ?Medication ?Instructions ?Recorded cyclobenzaprine 10 mg tablet 10 mg PO TID PRN muscle spasm #20 11/08/23 tabs lidocaine 5 % topical patch 1 patch topical DAILY #30 ea 11/08/23 morphine 15 mg immediate release 15 mg PO Q6H PRN pain #14 tabs 11/08/23 tablet Allergies Allergy/AdvReac Type Severity Reaction Status Date / Time lorazepam [From Ativan] AdvReac Severe low heart Verified 08/21/24 09:43 rate Review of Systems Review of Systems: No fever no chills No vomiting Yes all other systems are reviewed and are negative [facility] Past Medical History Attestation statement: The following information was validated with the patient. Medical History DDD (degenerative disc disease), thoracic Depression Anxiety Surgical History History of lumbosacral spine surgery Social History Social History Alcohol intake: current Alcohol intake frequency: 3 or more drinks per day Smoked in Last 30 Days: No Use of substances other than those prescribed or required for medical reasons: Yes Substance Use Type: Marijuana Advance Directives: No Advance Directives Information Provided: Yes Do you have a plan to hurt others: No Plan Patient : No Physical Exam ED Vital Signs: Vital Signs - 24 hr 08/21/24 09:39 Temperature 98.1 F Pulse Rate 82 Respiratory Rate 18 Blood Pressure 122/78 Pulse Oximetry 97 Oxygen Delivery Method Room Air BMI result Body Mass Index 22.1 Appearance: Alert. Oriented X3. No acute distress. Eyes: Pupils equal, round and reactive to light. ENT: Pharynx normal. Neck: Normal inspection. Neck supple. No lymph nodes noted. No crepitus CVS: Normal heart rate and rhythm. Pulses normal. Normal S1 and S2 Respiratory: No respiratory distress. Breath sounds normal. No Wheezing. No rales Abdomen: Soft and nontender. No rigidity. No distention. good BS x4 Skin: Skin warm and dry. Normal skin color. Normal skin turgor. Extremities: No lower extremity edema. Neurovascular intact to all extremities. No Lacerations. No Rash Neuro: Oriented X 3. No motor deficit. No sensory deficit. Moving all extermities. No slurred speech. Ambulates with a normal gait. Reflexes were 2+ at patella bilaterally. Medications Administered Discontinued Medications Generic Name Dose Route Start Last Admin Trade Name Anjali PRN Reason Stop Dose Admin Iohexol 100 ml 08/21/24 12:59 08/21/24 12:59 Iohexol 350 Mg/Ml 100 Ml Infus..Btl IV 08/21/24 13:00 85 ml ONCE ONE Administration Medical Decision Making Medical Decision Making MDM Narrative: I obtained the history and physical with the nurse Lula sullivan. Patient is abdominal exam was benign but she complained that she had not had a good bowel movement. She was trying to self disimpact. The CT scan showed moderate constipation. No obstruction no abscess question colitis. Patient is white count is normal. Patient's electrolytes are normal. Urine showed no signs of infection. She wanted GC and chlamydia sent they were. It is still pending. Patient's CT scan of the abdomen pelvis was negative for any acute evidence of obstruction abscess perforation. Well-appearing. Ambulated well in the emergency department. Sensation intact. Reflexes equal at patella. Able to sit on the side of the bed without any difficulty. Will discharge patient Differential Diagnosis Differential Diagnoses: The differential diagnosis associated with the presentation includes Admission/Observation Consideration of admission/observation: Escalation of care including admission/observation considered Lab Data [facility] Lab Attestation statement: I reviewed the patient's lab results. 08/21/24 09:52 08/21/24 09:52 Labs: Lab Results 08/21/24 08/21/24 Range/Units 09:52 10:54 WBC 7.6 (4.8-10.8) X10*3/uL RBC 4.14 L (4.20-5.50) X10*6/uL Hgb 12.6 (12.0-16.0) g/dl Hct 36.7 L (37.0-47.0) % MCV 88.6 (80.0-98.0) fL MCH 30.4 (27.0-33.0) pg MCHC 34.3 (31.0-35.0) g/dl RDW 15.4 (11.0-16.0) % Plt Count 210 D (160-400) X10*3/uL MPV 11.1 (9.4-12.3) fL Immature Gran % (Auto) 0.1 (0.0-0.4) % Neut % (Auto) 66.6 (45-73) % Lymph % (Auto) 22.9 (20-40) % Perry % (Auto) 8.3 (2-11) % Eos % (Auto) 1.3 (0-4) % Baso % (Auto) 0.8 (0-2) % Lymph # (Auto) 1.8 (1.2-4.9) X10*3/uL Perry # (Auto) 0.6 (0.1-1.2) X10*3/uL Eos # (Auto) 0.1 (0.0-0.4) X10*3/uL Baso # (Auto) 0.1 (0.0-0.2) X10*3/uL Abs Immat Gran (auto) 0.01 (0.00-0.03) X10*3/uL Absolute Neuts (auto) 5.1 (2.0-8.3) x10*3/uL Absolute Nucleated RBC 0.000 (0.0-0.012) X10*3/uL Nucleated RBC % (auto) 0.0 (0.0-0.2) /100WBC Sodium 140 (135-145) mmol/L Potassium 3.9 (3.3-5.1) mmol/L Chloride 108 (96-108) mmol/L Carbon Dioxide 23 (22-29) mmol/L Anion Gap 13 (12-20) BUN 10 (9-16) mg/dL Creatinine 0.68 (0.5-1.4) mg/dL Estim Creat Clear Calc 105.8 Estimated GFR > 60 Random Glucose 105 (60-115) mg/dL Calcium 9.5 (8.4-10.2) mg/dL Urine Color Yellow Urine Appearance Clear Urine pH 6.0 (5.0-9.0) Ur Specific [place] 1.010 (1.005-1.025) Urine Protein Negative (Neg-Trace) mg/dL Urine Glucose (UA) Negative (Negative) mg/dL Urine Ketones Negative (Negative) mg/dL Urine Blood Negative (Negative) Urine Nitrite Negative (Negative) Ur Leukocyte Esterase Negative (Negative) Urine Test NEGATIVE (NEGATIVE) Independent Interpretation I performed an independent interpretation of an: CT Scan (No gross obstruction) Radiology Impression Discussion of test interpretation with radiology: I have reviewed the radiologist's reading. Discharge Plan Discharge Clinical Impression: Depression, Constipation Patient Disposition: Home, Self-Care Instructions: Constipation (DC), Depression (ED) Prescriptions: No Action cyclobenzaprine 10 mg tablet 10 mg PO TID PRN (Reason: muscle spasm) Qty: 20 0RF lidocaine 5 % adhesive patch,medicated 1 patch topical DAILY Qty: 30 0RF Rx Instructions: leave on most painful area for up to 12 hrs morphine 15 mg tablet 15 mg PO Q6H PRN (Reason: pain) Qty: 14 0RF Rx Instructions: partial fill okay; Partial Fill upon patient request. multivitamin [Daily Multi-Vitamin] Tablet 1 tab PO DAILY clindamycin phosphate 1 % gel topical BID PRN valacyclovir 500 mg tablet 500 mg PO DAILY fluoxetine 40 mg capsule 40 mg PO DAILY clonidine HCl 0.2 mg tablet 0.2 mg PO BEDTIME oxcarbazepine 150 mg tablet 150 mg PO BID Referrals: Calvin Caldera MD [Primary Care Provider] - 08/25/24 Print Language: [place]
[2024-08-21 11:04] LABS: UPreg QC Valid YES; Urine Pregnancy NEGATIVE (NEGATIVE)
[2024-08-21 11:05] LABS: Appearance Urine Clear; Color Urine Yellow; Glucose Urine UA Negative (Negative); Leukocyte Esterase Urine Negative (Negative); Nitrite Urine Negative (Negative); Urine Blood Negative (Negative); Urine Ketones Negative (Negative); Urine Protein Negative (Neg-Trace)
--- OUTSIDE RECORDS SUMMARY | 2024-08-21 11:27 | XMS_ITS | Clinical Summary ---
Author Organization [facility] Address [address] [place] [address] Phone Care Team Providers Care Agents' Records Clerk Name Role Phone Calvin Caldera MD Primary Care Provider [phone] Allergies Active Allergy Reactions Criticality Noted Date Comments Lorazepam 02/11/2018 Medications albuterol HFA (PROAIR HFA ; PROVENTIL HFA ; VENTOLIN HFA) 90 mcg/actuation inhaler Inhale 2 Puffs into the lungs every 6 hours as needed for Cough or Wheezing. 04/17/19 24 Active clindamycin phosphate 1 % gel, once daily Apply small amount to vulva BID as needed for inflammation 04/11/19 24 Active cloNIDine (CATAPRES) 0.2 mg tablet Take 1 Tablet by mouth 3 times daily as needed. 01/04/20 23 Active buPROPion XL (WELLBUTRIN XL) 150 mg 24 hr tablet Take 1 tablet (150 mg total) by mouth 1 (one) time each day. 01/04/20 23 Active FLUoxetine (PROzac) 20 mg tablet Take 1 Tablet by mouth 2 times daily. 01/04/20 23 Active OXcarbazepine (TRILEPTAL) 150 mg tablet Take 1 Tablet by mouth 2 times daily. 01/04/20 23 Active valACYclovir (VALTREX) 500 mg tablet Take 1 Tablet by mouth daily. 11/15/19 23 Active miscellaneous medical supply misc INCONTINENCE SUPPLY DISPOSABLE (DISPOS UNDERPADS/90G/3 0 X36 ) MISC 2 Each by Does not apply route at bedtime as needed (for incontinence dx: R32.0). 08/08/19 22 Active hydrOXYzine HCL (ATARAX) 25 mg tablet TAKE 1-2 TABLETS BY MOUTH TWICE A DAY PANIC ATTACK/INCREASE D ANXIETY 04/27/19 25 Active nicotine (NICODERM CQ) 7 mg/[address] 1 patch on the skin 1 (one) time each day at the same time. 30 each 08/07/19 25 025 Active cyclobenzaprin e (FLEXERIL) 10 mg tablet TAKE 1 TABLET BY MOUTH EVERYDAY AT BEDTIME 30 tablet 08/12/19 25 Active nicotine 21-14-7 mg/24 hr patch, TD daily, sequential Place 1 patch on the skin 1 (one) time each day at the same time. 56 each 05/29/19 25 025 Discontinued cyclobenzaprin e (FLEXERIL) 10 mg tablet Take 1 tablet (10 mg total) by mouth at bedtime. 30 tablet 07/04/19 25 025 Discontinued Active Problems Problem Noted Date Diagnosed Date Need for rhogam due to Rh negative mother 2024 Rh negative state in antepartum period Overview (07/29/2024): A neg ASCUS with positive high risk HPV cervical [...] (uteri) 03/20/2006 Overview (04/21/2024): was seen by senior automation engineer before but now for while.has had laser surgery IMO update Encounters Date Type Department Care Team Description 08/06/2024 Telephone Internal Medicine - [facility] [address] [place], [place] [phone] Camille Thompson MA 07/29/2024 10:00 AM EDT Clinical Support Obstetrics and Gynecology [facility] [address] [place], [place] [address] [place] [phone] Need for rhogam due to Rh negative mother (Primary Dx) 07/23/2024 Telephone Obstetrics and Gynecology - [facility] [address] [place], [place] [address]nn[facility] [place] [phone] Alexandria Doyle CNM senior automation engineer problem 07/17/2024 [facility] [address] [place], [place] [address] [place] [phone] Calvin Caldera MD PT-1 ([facility] ) 07/17/2024 [facility] [address] [place], [place] [address]nn[facility] [place] [phone] Calvin Caldera MD PT1 07/16/2024 11:30 AM EDT [facility] [address] [place], [place] [address] [place] [phone] Calvin Caldera MD Routine general medical examination at a health care facility (Primary Dx); Amenorrhea; Positive test; Mass of lower outer quadrant of right breast 07/16/2024 Telephone [facility]s [facility] [place] [phone] Alexandria Doyle CNM Confirmation 06/29/2024 [facility]phone [facility] [address] [place], [place] [address]nn[facility] [place] [phone] Calvin Caldera MD pt1 06/26/2024 [facility] [address] [place], [place] [address] [place] [phone] Calvin Caldera MD provider call back 06/25/2024 [facility] [address] [place], [place] [address] [place] [phone] Calvin Caldera MD PT1 (Dr Joseph Mckeon - Neurosurgeon/[facility]) 06/12/2024 Telephone Obstetrics and Gynecology - [facility] [address] [place], [place] [address], [place] [phone] Alexandria Doyle CNM Results 06/09/2024 [facility] [address] [place] [address] Calvin Caldera MD letter request 06/04/2024 [facility]phone [facility] [address] [place] [address] Calvin Caldera MD PT-1 (PT-1 [facility] [place]) 06/03/2024 Telephone [facility] [address] [place] [address] Nicole Boswell MA Results 06/02/2024 12:38 PM EST - 06/02/2024 11:59 PM EST Hospital Encounter [facility] Ultrasound [address] [place] [address] Mass of upper outer quadrant of right breast Discharge Disposition: Home or Self Care 06/02/2024 9:15 AM EST Office [facility] [address] [place] [address] Alexandria Doyle CNM Screen for STD (sexually transmitted disease) (Primary Dx); test negative 05/27/2024 Telephone [facility] [address] [place] [address] Calvin Caldera MD PT1 from Last 3 Months Immunizations Name Administration Dates Next Due Hepatitis B (Zlpunan-F-Mngqd , Recombivax HB-Adult) 19yo and older 05/04/2015,08/03/2013,07/01/2013 Hepatitis B Pediatric (Enger ix B; Recombivax HB) to less than 20 yo 02/19/2017 MMR, measles mumps and rubel la Live (Priorix; M-M-R II) 12mo and older 02/19/2017 Rho (D) Immune Globulin 07/29/2024 Tdap Tetanus diptheria acell ular pertussis (Boostrix; Adacel) 7yo and older 07/01/2013,05/21/2008 Surgical History Surgery Date Site/Laterality Comments OTHER SURGICAL HISTORY 1999 Right PROCEDURE: RI TEAEC W/WO PATCH GRF AXILLARY-BRACHIAL KNEE ARTHROSCOPY 2018 Left PROCEDURE: RI ARTHROSCOPY AID TX SPINE&/FX KNEE W/O FIXJ; [...] 09/12/2017 DX:HSV infection History of drug abuse (CMS/H CC V24, CMS/HCC V28) DX:History of drug abuse (HC C); COMMENT: 11/2017 cocaine per transfer records scanned in 01/2018. also +MJ, benzo History of suicide attempt DX:Ar story of suicide attempt; COMMENT: per transfer records 11/2017. held under section 35 for alcohol; mandatory substance abuse treatment at [facility] History of alcohol abuse DX:Hist ory of [...] Maternal Grandmother Mother Alive healthy Sister Alive [id number] Social History Tobacco Use Types Packs/Day Years [...] SAB Ectopic Multiple Livin g Live Births 9 1 0 1 8 4 4 0 1 2 2 Date Outcome GA Total Labor Labor/2nd/3rd Weight Sex Type Anes PTL Ejnna A1 A5 Name Clin SAB SAB IAB Comments:pills IAB Comments:Pills IAB Comments:Pills SAB 2004 35w 2d 1847 g (65.2 oz) F Vag-Br eech Epidur al Livin g 3 9 Esther cavanaugh MD Delivery Location:[facility] Comments:delivered vag inal breech 2004 35w 2d 1889 g (66.6 oz) F Vag-Sp ont Epidur al Livin g 9 9 Chane caleb-Maricruz e Rosangela cavanaugh MD Delivery Location:[facility] Comments:Gilliam-Di twins - delivered vertex 9 SAB 2024 IAB Medica l Karen Delivery Location:[facility] Comments:medication Last Filed Vital Signs Vital Sign Reading Time Taken Comments Blood Pressure 130/66 07/29/2024 10:49 AM EDT Pulse 60 07/29/2024 10:40 AM EDT Temperature - - Respiratory Rate 18 07/29/2024 10:40 AM EDT Oxygen Saturation - - Inhaled Oxygen Concentration - - Weight 67 kg (147 lb 9.6 oz) 07/29/2024 10:40 AM EDT Height 168.9 cm (5' 6.5 ) 07/29/2024 10:40 AM ED T Body Mass Index 23.47 07/29/2024 10:40 AM EDT Plan of Treatment Upcoming Encounters Date Type Department Care Team (Late st Contact Info) Description 09/16/2024 9:15 AM EDT Consult [facility] - [place] [address] [place] [phone] Branden More MD [address] [place] [address] Health Maintenance Due Date Last Done Comments Breast Cancer Screening 1983 Pneumococcal Vaccine: Pediatrics (0 to 5 Years) and At-Risk Patients (6 to 64 Years) (1 of 2 - PCV) 2002 Depression Screening 03/17/2022 Social Influencers of Health Screening 03/17/2022 DTaP,Tdap,and Td Vaccines (3 - Td or Tdap) 07/02/2023 07/01/2013, 05/21/2008 COVID-19 Vaccine ( - season) 2023 Influenza Vaccine (Season Ended) 2024 Hypertension/CHF/CAD Annual BMP Blood Test 07/29/2025 07/29/2024, 03/05/2021, 03/05/2021, Additional history exists Cervical Cancer Screening: HPV 06/21/2027 06/20/2022 Cholesterol Screening (Lipid Panel) 07/29/2029 07/29/2024, 06/23/2020 Hepatitis B Vaccines Completed 02/19/2017, 05/04/2015, 08/03/2013, [...] age to complete this topic Meningococcal B Vaccine Aged Out No l onger eligible based on patient's age to complete this topic RSV Immunization Patients Under 20 months Aged Out No longer eligible based on patient's age to complete this topic Varicella Vaccines Aged Out No longer eligible based on patient's age to complete this topic Procedures Procedure Name Priority Date/Time Associated Diagnosis Comments CBC WITH AUTO DIFFERENTIAL Routine 07/29/2024 10:11 AM EDT Routine general medical examination at a [facility] care facility HCG, QUANTITATIVE Routine 07/29/2024 10: 11 AM EDT Positive test HCG, SERUM, QUALITATIVE Routine 07/30/19 10:11 AM EDT Positive test CBC AND DIFFERENTIAL Routine 07/29/2024 10:11 AM EDT Routine general medical examination at a [facility] facility COMPREHENSIVE METABOLIC PANEL Routine 07/29/2024 10:11 AM EDT Routine general medical examination at [facility] facility LIPID PANEL WITH REFLEX TO DIRECT LDL Routine 07/29/2024 10:11 AM EDT Routine general medical examination at a [facility] facility THYROID STIMULATING HORMONE WITH REFLEX TO FREE T4 AND FREE T3 Routine 07/29/2024 10:11 AM EDT Amenorrhea TYPE AND SCREEN Routine 07/29/2024 10:11 AM EDT Need for rhogam due to Rh negative mother POC , URINE DIAGNOSTIC Routine 07/16/2024 11:42 AM EDT Amenorrhea HEPATITIS C ANTIBODY Routine 06/08/2024 11:59 AM [...] EST test negative HM HPV Routine 06/20/2022 from Last 3 Months or Most Recently Relevant to Health Maintenance Results * Thyroid stimulating hormone with reflex to free t4 and free t3 (07/29/2024 10:11 AM EDT) Pathologist [facility] TSH 1.95 0.40 - 4.00 mcIU/mL LAB CHEMISTRY METHOD 07/29/2024 2:09 PM EDT [facility] Blood Venous blood specimen / Unknown Venipuncture / Unknown 07/29/2024 10:11 AM EDT 07/29/2024 10:11 AM EDT us Calvin Caldera MD LAB BLOOD ORDERABLES Sarah l Result [facility] [address] [place] [address], [place] [phone] * (ABNORMAL) Lipid panel with reflex to direct LDL (07/29/2024 10:11 AM EDT) Cholesterol 188 0 - 200 mg/dL LAB CHEMISTRY METHOD 07/29/2024 1:34 PM EDT [facility] Triglycerides 110 0 - 150 mg/dL LAB CHEMISTRY METHOD 07/29/2024 1:34 PM EDT [facility] HDL 50 >=40 mg/dL LAB CHEMISTRY METHOD 07/29/2024 1:34 PM EDT [facility] LDL Calculated 116(H) 0 - 100 mg/dL LAB CHEMISTRY METHOD 07/29/2024 1:34 PM EDT [facility] VLDL Cholesterol Gorge 22 mg/dL LAB CHEMISTRY METHOD 07/29/2024 1:34 PM EDT [facility] Non HDL Chol. (LDL+VLDL) 138 <145 mg/dL LAB CHEMISTRY METHOD 07/29/2024 1:34 PM EDT [facility] Chol/HDL Ratio 3.8 0.0 - 4.4 LAB CHEMISTRY METHOD 07/29/2024 1:34 PM EDT [facility] Blood Venous blood specimen / Unknown Venipuncture / Unknown 07/29/2024 10:11 AM EDT 07/29/2024 10:11 AM EDT Calvin Caldera MD LAB BLOOD ORDERABLES Sarah l Result [facility] [address] [place] [address], * (ABNORMAL) CBC auto differential (07/29/2024 10:11 AM EDT) WBC 7.0 4.8 - 10.8 K/mcL LAB HEMETOLOGY METHOD 07/29/2024 12:56 PM EDT [facility] RBC 3.90 3.80 - 4.80 M/mcL LAB HEMETOLOGY METHOD 07/29/2024 12:56 PM EDT [facility] Hemoglobin 11.8 11.5 - 16.0 g/dL LAB HEMETOLOGY METHOD 07/29/2024 12:56 PM EDT [facility] Hematocrit 35.5 35.0 - 47.0 % LAB HEMETOLOGY METHOD 07/29/2024 12:56 PM EDT [facility] MCV 90.6 79.0 - 98.0 FL LAB HEMETOLOGY METHOD 07/29/2024 12:56 PM EDT [facility] MCH 30.1 27.0 - 32.0 pcg LAB HEMETOLOGY METHOD 07/29/2024 12:56 PM [facility] MCHC 33.2 32.0 - 37.0 g/dL LAB HEMETOLOGY METHOD 07/29/2024 12:56 PM EDT [facility] RDW 15.6(H) 11.0 - 15.0 % LAB HEMETOLOGY METHOD 07/29/2024 12:56 PM [facility] Platelets 239 130 - 400 K/mcL LAB HEMETOLOGY METHOD 07/29/2024 12:56 PM [facility] MPV 11.1(H) 7.0 - 11.0 FL LAB [facility]EMETOLOGY [facility] NRBC 0.0 <1.0 % LAB HEMETOLOGY METHOD 07/29/2024 12:56 PM [facility] NRBC Absolute 0.00 <0.10 K/mcL LAB HEMETOLOGY METHOD 07/29/2024 12:56 PM [facility] Neutrophils Relative 71.4 % LAB HEMETOLOGY METHOD 07/29/2024 12:56 PM [facility] Lymphocytes Relative 20.5 % LAB HEMETOLOGY METHOD 07/29/2024 12:56 PM [facility] Monocytes Relative 6.7 % LAB HEMETOLOGY METHOD 07/29/2024 12:56 PM [facility] Eosinophils Relative 0.3 % LAB HEMETOLOGY METHOD 07/29/2024 12:56 PM [facility] Basophils Relative 0.7 % LAB HEMETOLOGY METHOD 07/29/2024 12:56 PM EDT [facility] Immature Granulocytes Relative 0.4 % LAB HEMETOLOGY METHOD 07/29/2024 12:56 PM EDT [facility] Neutrophils Absolute 5.02 1.50 - 7.00 K/mcL LAB HEMETOLOGY METHOD 07/29/2024 12:56 PM EDT [facility] Lymphocytes Absolute 1.44 1.00 - 5.00 K/mcL LAB HEMETOLOGY METHOD 07/29/2024 12:56 PM EDT [facility] Monocytes Absolute 0.47 0.20 - 1.00 K/mcL LAB HEMETOLOGY METHOD 07/29/2024 12:56 PM EDT [facility] Eosinophils Absolute 0.02 0.00 - 0.50 K/mcL LAB HEMETOLOGY METHOD 07/29/2024 12:56 PM EDT [facility] Basophils Absolute 0.05 0.00 - 0.20 K/mcL LAB HEMETOLOGY METHOD 07/29/2024 12:56 PM EDT [facility] Immature Granulocytes Absolute 0.03 0.00 - 0.03 K/mcL LAB HEMETOLOGY METHOD 07/29/2024 12:56 PM EDT [facility] Blood Venous blood specimen / Unknown Venipuncture / Unknown 07/29/2024 10:11 AM EDT 07/29/2024 10:11 AM EDT us Calvin Caldera MD LAB BLOOD ORDERABLES Sarah l Result [facility] [address] [place] [address], * Type and screen (07/29/2024 10:11 AM EDT) ABO Group A 07/29/2024 2:04 PM EDT [facility] Rh Type Negative 07/29/2024 2:04 PM EDT [facility] Antibody Screen Negative 07/29/2024 2:04 PM EDT [facility] Blood Venous blood specimen / Unknown Venipuncture / Unknown 07/29/2024 10:11 AM EDT 07/29/2024 10:11 AM EDT Alexandria Doyle CNM LAB BLOOD BANK TEST ORDERABL ES Final Result [facility] [address] [place] [address], [place] [phone] * (ABNORMAL) HCG, serum, qualitative (07/29/2024 10:11 AM EDT) hCG Qual Positive(A ) Negative 07/29/2024 12:45 PM EDT [facility] Blood Venous blood specimen / Unknown Venipuncture / Unknown 07/29/2024 10:11 AM EDT 07/29/2024 10:11 AM EDT Calvin Caldera MD LAB BLOOD ORDERABLES Sarah l Result [facility] [address] [place] [address], [place] [phone] * HCG, quantitative (07/29/2024 10:11 AM EDT) hCG Quant 461 mIU/mL LAB CHEMISTRY METHOD 07/29/2024 1:34 PM EDT [facility] Blood Venous blood specimen / Unknown Venipuncture / Unknown 07/29/2024 10:11 AM EDT 07/29/2024 10:11 AM EDT Narrative [facility] - 07/29/2024 1:34 PM EDT Quantitative HCG Reference Ranges Time after Conception ? MIU/ML 0.2-1 Week ? 5-50 1-2 ?? Weeks ? 50-500 2-3 ?? Weeks ?100-5,000 3-4 ?? Weeks ?500-10,000 4-5 ?? Weeks ?1,000-50,000 5-6 ?? Weeks ? 10,000-100,000 6-8 ?? Weeks ? 15,000-200,000 2-3 ?? Months ?10,000-100,000 2nd Trimester ?1,000-94,000 3rd Trimester ?2,500-90,000 Non- Females ?1-3 us Calvin Caldera MD LAB BLOOD ORDERABLES Sarah ellis Result Performing Organization Address City/State/[facility] Co de Phone Number [facility] [address] [place] [address], * (ABNORMAL) Comprehensive metabolic panel (07/29/2024 10:11 AM EDT) Sodium 141 133 - 145 mmol/L LAB CHEMISTRY METHOD 07/29/2024 1:34 PM EDT [facility] Potassium 3.5 3.5 - 5.5 mmol/L LAB CHEMISTRY METHOD 07/29/2024 1:34 PM EDT [facility] Chloride 109 96 - 110 mmol/L LAB CHEMISTRY METHOD 07/29/2024 1:34 PM [facility] CO2 23 21 - 32 mmol/L LAB CHEMISTRY METHOD 07/29/2024 1:34 PM [facility] Anion Gap 9 3 - 11 LAB CHEMISTRY METHOD 07/29/2024 1:34 PM [facility] Glucose 97 70 - 100 mg/dL LAB CHEMISTRY METHOD 07/29/2024 1:34 PM [facility] BUN 6 5 - 25 mg/dL LAB CHEMISTRY METHOD 07/29/2024 1:34 PM [facility] Creatinine 0.67 0.50 - 1.10 mg/dL LAB CHEMISTRY METHOD 07/29/2024 1:34 PM [facility] eGFR 113 >=60 mL/min/1. 73m2 LAB CHEMISTRY METHOD 07/29/2024 1:34 PM [facility] Comment:Calculation based on the??Chronic Kidney Disease Epidemiology Collaboration (CKD-EPI) equation refit??without adjustment for race. BUN/Creatinine Ratio 9.0 LAB CHEMISTRY METHOD 07/29/2024 1:34 PM [facility] Calcium 9.5 8.5 - 10.5 mg/dL LAB CHEMISTRY METHOD 07/29/2024 1:34 PM [facility] AST (SGOT) 12 10 - 42 unit/L LAB CHEMISTRY METHOD 07/29/2024 1:34 PM [facility] ALT (SGPT) 13 10 - 60 unit/L LAB CHEMISTRY METHOD 07/29/2024 1:34 PM [facility] Alkaline Phosphatase 35(L) 42 - 121 unit/L LAB CHEMISTRY METHOD 07/29/2024 1:34 PM [facility] Total Protein 7.2 6.0 - 8.0 g/dL LAB CHEMISTRY METHOD 07/29/2024 1:34 PM [facility] Albumin 3.9 3.2 - 5.0 g/dL LAB CHEMISTRY METHOD 07/29/2024 1:34 PM EDT [facility] Total Bilirubin 0.6 0.0 - 1.4 mg/dL LAB CHEMISTRY METHOD 07/29/2024 1:34 PM EDT [facility] Blood Venous blood specimen / Unknown Venipuncture / Unknown 07/29/2024 10:11 AM EDT 07/29/2024 10:11 AM EDT Calvin Caldera MD LAB BLOOD ORDERABLES Sarah l Result Performing Organization Address City/[facility]/ZIP Co de Phone Number [facility] [address] [place] [address], [place] [phone] * (ABNORMAL) POC , urine manually resulted (07/16/2024 11:42 AM EDT) Only the most recent of2 resultswithin the time period is included. [facility] HCG, Ur POC Positive(A ) Negative POC hCG Int QC Pass? Yes Yes Urine Urine specimen obtained by clean catch procedure / Unknown 07/16/2024 11:42 AM EDT Calvin Caldera MD POINT OF CARE TEST ENTER/ EDIT ORDERABLES Final Result * Hepatitis C antibody (06/08/2024 11:59 AM EST) [facility] Hepatitis C Antibody Negative Negative LAB CHEMISTRY METHOD 06/08/2024 4:55 PM EST [facility] Blood Venous blood specimen / Unknown Venipuncture / Unknown 06/08/2024 11:59 AM EST 06/08/2024 11:59 AM EST Alexandria Doyle CNM LAB BLOOD ORDERABLES Final R esult [facility] [address] [place] [address], [place] [phone] * HIV 1,2 antibody, p24 antigen with reflex to differentiation (06/08/2024 11:59 AM EST) HIV Combo AB/AG Negative Negative LAB CHEMISTRY METHOD 06/08/2024 4:55 PM EST [facility] Blood Venous blood specimen / Unknown Venipuncture / Unknown 06/08/2024 11:59 AM EST 06/08/2024 11:59 AM EST Narrative [facility] - 06/08/2024 4:55 PM EST This [...] ORDERABLES Final R esult Performing Organization Address City/[facility]/ZIP Co de Phone Number [facility] [address] [place] [address], [place] [phone] * Treponema pallidum antibody with reflex to RPR and particle agglutination (06/08/2024 11:59 AM EST) Pathologist [facility] T. Pallidum Antibodies Negative Negative LAB CHEMISTRY METHOD 06/08/2024 4:26 PM EST [facility] Blood Venous blood specimen / Unknown Venipuncture / Unknown 06/08/2024 11:59 AM EST 06/08/2024 11:59 AM EST Alexandria [facility] LAB BLOOD ORDERABLES Final R esult Performing Organization Address City/[facility]/ZIP Co de Phone Number [facility] [address] [place] [address], [place] [phone] * US Breast Limited Right (06/02/2024 1:07 [...] Signed Date: 06/02/2024 13:14 ET Workstation ID: [id number] Transcribed By: Self Edit Transcribed Date: 06/02/2024 [...] Signed Date: 06/02/2024 13:14 ET Workstation ID: [id number] Transcribed By: Self Edit Transcribed Date: 06/02/2024 13:06 ET Francisca RODRÍGUEZ IMG US PROCEDURES Final Resu lt * Trichomonas vaginalis antigen (06/02/2024 10:02 AM EST) Trichomonas vaginalis Negative Negative 06/02/2024 9:25 PM EST [facility] Swab Vaginal structure / Unknown Non-blood Collection / Unknown 06/02/2024 10:02 AM EST 06/02/2024 10:02 AM EST Alexandria Doyle CNM LAB MICROBIOLOGY - GENERAL O RDERABLES Final Result [facility] [address] [place] [address], * Chlamydia trachomatis and Neisseria gonorrhoeae molecular study (06/02/2024 10:02 AM EST) Neisseria gonorrhoeae PCR Negative Negative LAB MOLECULAR DIAGNOSTICS METHOD 06/03/2024 9:36 AM EST [facility] Chlamydia trachomatis PCR Negative Negative LAB MOLECULAR DIAGNOSTICS METHOD 06/03/2024 9:36 AM EST [facility] Swab Vaginal structure / Unknown Non-blood Collection / Unknown 06/02/2024 10:02 AM EST 06/02/2024 10:02 AM EST Alexandria Doyle CNM LAB MICROBIOLOGY - GENERAL O RDERABLES Final Result [facility] [address] [place] [address], * (ABNORMAL) Wet prep, genital (06/02/2024 10:02 AM EST) Pathologist [facility] Clue Cells, Wet Prep Negative Negative 06/02/2024 9:25 PM EST [facility] Yeast, Wet Prep Positive(A) Negative 06/02/2024 9:25 PM EST [facility] Trichomonas, Wet Prep Indeterminate Negative 06/02/2024 9:25 PM EST [facility] Comment:Refer to Trichomonas antigen. Swab Vaginal structure / Unknown Non-blood Collection / Unknown 06/02/2024 10:02 AM EST 06/02/2024 10:02 AM EST Alexandria QUIROS LAB MICROBIOLOGY - GENERAL O RDERABLES Final Result [facility] [address] [place] [address], * Cervical Cancer Screening: HPV (06/20/2022) Pathologist [facility] Cervical Cancer Screening: HPV no interpretation , abstracted Historical Provider HEALTH MAINTENANCE Final Result from Last 3 Months or Most Recently Relevant to Health Maintenance Insurance [facility] [facility] Care Teams Agents' Records Clerk Relationship Specialty Start Date End Date Calvin Caldera MD [address] [place] [id number] PCP - General Internal Medicine 08/09/17
--- OUTSIDE RECORDS SUMMARY | 2024-08-21 11:27 | XMS_ITS | Clinical Summary ---
Author Organization [facility] Address [address] [place] [address] Care Team Providers Care Landscape Management Technician Name Role Phone Unavailable Primary Care Provider [...] Advance Directives For more information, please contact: [phone] Latest Code Status on File Code Status Date Activated Date Inactivated Comments Full Code 03/03/2021 7:13 AM 03/08/2021 4:15 PM This code status was ascertained in the following way: discussion with patient .
--- OUTSIDE RECORDS SUMMARY | 2024-08-21 11:27 | XMS_ITS | Clinical Summary ---
Author Organization [facility] Address [address] [place] [address] Care Team Providers Care Business Affairs Manager Name Role Phone Pcp, No Primary Care Provider Unavailabl e Allergies Active Allergy Reactions Criticality Noted Date Comments Lorazepam Unknown/Patient and Family Unable to Define Medium 01/23/2021 Social History Tobacco Use Types Packs/Day Years Used Date Smoking Tobacco: Never Assessed Comments Unknown Sex and Gender Information Value Date Recorded Sex Assigned at Not on file Legal Sex Female 2:51 AM EDT Gender Identity Not on file Sexual Orientation [...] Pap Smear (Ages 21-65) 2004 Mammogram 2023 COVID-19 Vaccine ( - 2023-2 5 season) 2023 Influenza Vaccine 11/06/2024 HPV Vaccines Aged Out No longer eligi ble based on patient's age to complete this topic Pneumococcal Vaccine: Pediat farzaneh (0-5 Years) and At-Risk Patients (6 to 49 Years) Aged Out No longer eligible b ased on patient's age to complete this topic Insurance MEDICAID OUT OF STATE [facility] [place] [id number] Care Teams Business Affairs Manager Relationship Specialty Start Date End Date Pcp, [place] PCP - General General Medicine 01/23/21
--- OUTSIDE RECORDS SUMMARY | 2024-08-21 11:27 | XMS_ITS | Encounter Summary ---
Author Organization [facility] Address [address] [place] [address] Care Team Providers Care Video News Editor Name Role Phone Calvin Caldera MD Primary Care Provider [phone] Reason for Visit * Reason Onset Date Comments director park problem 07/23/2024 Encounter Details Date Type Department Care Team (Late st Contact Info) Description 07/23/2024 [facility] [address] [place] [phone] Alexandria Doyle CNM [address] [place] [id number] director park problem Social History Tobacco Use Types Packs/Day Years [...] Progress Notes * Heather Peres RN - 07/23/2024 4:28 PM EDT Alexandria, can you advise. Pt had medication TAB today at [facility]. They did not give her Rhogam (Pt is A-Negative). She is starting to bleed heavy with cramping. Pt has transportation issue and difficulty getting PT-1 form. She is 39, not planning another anytime soon (thought she could handle it but wasn't wereshe thought she would be in recovery from her surgeries). She is asking if she still needs to get Rhogam. She doesn't think she will be able to get her priorto Saturday (she is scheduled for 9am tentatively) as she has to try to get a ride. Can you advise if Rhogam is indicated (she was 7w1d)? Will need Rhogam and if needed antibody screen ordered if it is indicated. * Nelly Beto - 07/23/2024 2:23 PM EDT Chief Complaint/problem: patient had appointment today at [facility] - she would like to speak to nurse - has questions How long has the patient had this problem? 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 [place] [address] Branden More MD [address] [place] [address] documented as of this encounter Results * Type and screen (07/29/2024 10:11 AM EDT) ABO Group A 07/29/2024 2:04 PM EDT [facility] Rh Type Negative 07/29/2024 2:04 PM EDT [facility] Antibody Screen Negative 07/29/2024 2:04 PM EDT [facility] Blood Venous blood specimen / Unknown Venipuncture / Unknown 07/29/2024 10:11 AM EDT 07/29/2024 10:11 AM EDT us Alexandria Doyle CNM LAB BLOOD BANK TEST ORDERABL ES Final Result [facility] [address] [place] [address], documented in this encounter Visit Diagnoses Diagnosis Need for rhogam due to Rh negative mother- Primary Need for prophylactic immunotherapy documented in this encounter Care Teams Video News Editor Relationship Specialty Start Date End Date Calvin Caldera MD [address] [place] [id number] PCP - General Internal Medicine 08/09/17 documented as of this encounter
[2024-08-21] MEDS: iohexoL 350 MG/ML 100 ML INFUS..BTL IV (12:59)
--- NOTE | 2024-08-21 13:23 | PC.NURSE ---
pt called this nurse into room stated that she could no longer wait for her results. IV removed per pt request. advised pt CT scan result still pending. Pt re stated that she cannot wait and has a schedule to keep pt left dept fully ambulatory. notified via [employer].
[2024-08-21 13:47] VITALS: BP 122/78; PULSE 82; RESP 18; TEMP 36.7; O2SAT 97
[2024-08-21 13:59] LABS: CT PCR NOT DETECTED (Not Detect.); NG PCR NOT DETECTED (Not Detect.)
== END 2024-08-21 13:48 | disposition home or self-care (01) ==
PROVIDERS: Emergency Provider Emergency Medicine Emergency Medical Services; PCP Internal Medicine
DX: K59.00 Constipation, unspecified (principal); F33.1 Major depressive disorder, recurrent, moderate; R20.0 Anesthesia of skin; Z79.899 Other long term (current) drug therapy
CPT/HCPCS: 36415; 74177; 80048; 81003; 81025; 85025; 87491; 87591; 99284; Q9967

== ENCOUNTER → 2024-08-21 12:14 | Outpatient (BNV) | payer OTHER, SELFPAY | PROVIDERS: Emergency Provider Emergency Medicine Emergency Medical Services; PCP Internal Medicine; Visit Provider Radiology Diagnostic Radiology | DX: K63.89 Other specified diseases of intestine (principal); K56.41 Fecal impaction | CPT/HCPCS: 74177 ==